=== PATIENT | female | born 1960 | race Caucasian/White ===

== ENCOUNTER 2016-09-01 12:29 | Observation (INO) | payer MEDICARE ==
[2016-09-01] MEDS ORDERED: SODIUM CHLORIDE 0.9% 1,000 ML IV STA (13:25)
[2016-09-01] MEDS ORDERED: ONDANSETRON 4 MG/2 ML VIAL IVP STA (13:25)
[2016-09-01] MEDS ORDERED: NITROGLYCERIN OINT 1 INCH/GM PACKET TOPICAL STA (13:25)
[2016-09-01] MEDS ORDERED: fentaNYL (PF) 50 MCG/ML 2 ML AMP IV PRN ×2 (13:27→15:44)
--- NOTE | 2016-09-01 14:00 | XR ---
EXAMINATION TYPE: XR chest 2V DATE OF EXAM: 09/01/2016 1:55 PM COMPARISON: Prior chest x-ray 25 May 2016 HISTORY: Chest pain TECHNIQUE: Frontal and lateral views of the chest are obtained. FINDINGS: There is no focal air space opacity, pleural effusion, or pneumothorax seen. The cardiac silhouette size is within normal limits. Patient is post left shoulder arthroplasty, median sternot victoria, multiple level vertebroplasty and mitral valve replacement. There are overlying cardiac leads. IMPRESSION: No acute cardiopulmonary process.
[2016-09-01 14:01] LABS: Calcium 9.4 mg/dL (8.4-10.2); Magnesium 1.7 mg/dL (1.6-2.3); Potassium 4.7 mmol/L (3.5-5.1); Total Bilirubin 0.4 mg/dL (0.2-1.3); Total Protein 6.3 g/dL (6.3-8.2)
[2016-09-01] MEDS ORDERED: ACETAMINOPHEN IV (For NPO) 1,000 MG in EMPTY BAG 1 BAG IVPB STA (14:02)
[2016-09-01 14:05] LABS: INR 1.1 (<1.1); Partial Thromboplastin Time 24.9 sec (22.0-30.0); Prothrombin Time 10.6 sec (9.0-12.0)
[2016-09-01 14:08] LABS: Basophils % (A) 0 %; CH 30.3; CHCM 32.2; Eosinophils # (A) 0.1 k/uL (0-0.7); Eosinophils % (A) 3 %; HCT 41.2 % (34.0-46.0); HDW 2.84; HGB 13.1 gm/dL (11.4-16.0); Hypochromasia Slight; Luc # (Auto) 0.16; Luc % (Auto) 3; Lymphocytes # (A) 2.1 k/uL (1.0-4.8); Lymphocytes % (A) 44 %; MCH 29.9 pg (25.0-35.0); MCHC 31.7 g/dL (31.0-37.0); MCV 94.4 fL (80.0-100.0); Mean Platelet Volume 7.6; Monocytes # (A) 0.4 k/uL (0-1.0); Monocytes % (A) 9 %; Neutrophils % (A) 41 %; RBC 4.36 m/uL (3.80-5.40); RDW 12.5 % (11.5-15.5); WBC 4.8 k/uL (3.8-10.6); WBC (Perox) 5.06
[2016-09-01 14:17] LABS: Creatine Kinase 74 U/L (30-135)
[2016-09-01 14:31] LABS: Creatine Kinase MB 0.7 ng/mL (0.0-2.4); Troponin I <0.012 ng/mL (0.000-0.034)
--- NOTE | 2016-09-01 14:38 | CT ---
EXAMINATION TYPE: CT brain wo con DATE OF EXAM: 09/01/2016 2:26 PM COMPARISON: 08/30/2015 HISTORY: 56-year-old female with left hand numbness, chest pain, headache and dizziness. TECHNIQUE: Examination was done in axial plane without intravenous contrast. Coronal and sagittal reconstructio ns performed. CT DLP: 1043 mGycm Automated exposure control for dose reduction was used. FINDINGS: There is no evidence of acute intracranial hemorrhage, acute ischemic changes, mass, mass-effect, or extra-axial fluid collection. There is no effacement of cerebral sulci or basal subarachnoid cister ns. There is no hydrocephalus. There is no midline shift. Martinez-white matter distinction is preserv ed. Old area of encephalomalacia within the right frontal lobe with secondary ex vacuo enlargement of the frontal horn of the right lateral ventricle. Paranasal sinuses and mastoid air cells are well pneumatized. Orbits and globes are intact. 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 No acute intracranial abn ormality seen.
[2016-09-01] MEDS ORDERED: RX INFO: IV CONTRAST WAS GIVEN 1 EACH MISC MISCELLANE PRN (15:17)
[2016-09-01] MEDS ORDERED: MEPERIDINE 50 MG/ML SYRINGE IVP STA (16:05)
--- NOTE | 2016-09-01 16:05 | ED ---
Chest Pain HPI - General Chief Complaint: Chest Pain Stated Complaint: Chest Pain Time Seen by Provider: 09/01/16 12:51 Source: patient Mode of arrival: wheelchair Limitations: no limitations - History of Present Illness Initial Comments: Planing about the chest pain and the back pain it's between her shoulder blades she had this episode about 11 AM and she was driving she pulled over this pain lasted for about 10-15 minutes she denies any shortness of breath rate down with the chest pain gets worse when she takes a deep breath she denies any chest pain at this point unless she takes a deep breath she does have a history of DVT she had a history of blood clot in her in her leg once and once and along this is palpation. Now not been feeling feeling well for the whole week denies any weakness of one leg or arm she does have a history of MS she is complaining about the parotid patient she said it's not her usual MS Contin of blurred vision he seems more pronounced - Related Data Home Medications Medication Instructions Recorded Confirmed Baclofen [Lioresal] 10 mg PO TID 04/22/14 09/01/16 Cholecalciferol [Vitamin D3] 2,000 unit PO DAILY 04/22/14 09/01/16 Cyclobenzaprine [Flexeril] 10 mg PO BID PRN 04/22/14 09/01/16 Denosumab [Prolia] 60 mg SQ Q180D 04/22/14 09/01/16 cycloSPORINE [Restasis] 1 drop BOTH EYES BID 04/22/14 09/01/16 ALPRAZolam [Xanax] 0.5 mg PO BID 08/30/15 09/01/16 Temazepam [Restoril] 30 mg PO HS PRN 08/30/15 09/01/16 Ascorbic Acid [Vitamin C] 500 mg PO DAILY 10/19/15 09/01/16 Cetirizine HCl [Zyrtec] 10 mg PO DAILY 10/19/15 09/01/16 L.acidoph,Paracasei, B.lactis 1 cap PO DAILY 10/19/15 09/01/16 [Probiotic] Magnesium Oxide [Mag-Ox] 250 mg PO DAILY 10/19/15 09/01/16 Montelukast [Singulair] 10 mg PO DAILY 10/19/15 09/01/16 Multivitamins, Thera [Multivitamin] 1 tab PO DAILY 10/19/15 09/01/16 [place]-3 Fatty Acids [[place]-3] 1,000 mg PO DAILY 10/19/15 09/01/16 Zinc 50 mg PO DAILY 10/19/15 09/01/16 Aspirin EC [Ecotrin Low Dose] 81 mg PO DAILY 05/25/16 09/01/16 Albuterol Nebulized [Ventolin 2.5 mg INHALATION RT-BID 09/01/16 09/01/16 Nebulized] Gabapentin [Neurontin] 400 mg PO TID 09/01/16 09/01/16 HYDROcodone/APAP 7.5-325MG [[place] 1 tab PO HS 09/01/16 09/01/16 7.5-325] Ibuprofen [Motrin] 800 mg PO BID PRN 09/01/16 09/01/16 Umeclidinium [place] [Incruse 1 puff INHALATION RT-DAILY 09/01/16 09/01/16 Ellipta] Allergies Allergy/AdvReac Type Severity Reaction Status Date / Time vancomycin Allergy Severe Anaphylaxis Verified 09/01/16 13:58 Latex, Natural Rubber Allergy Mild Rash/Hives Verified 09/01/16 13:58 doxycycline Allergy Anaphylaxis Verified 09/01/16 13:58 heparin Allergy Anaphylaxis Verified 09/01/16 13:58 hydromorphone HCl Allergy Anaphylaxis Verified 09/01/16 13:58 [From Dilaudid] linezolid [From Zyvox] Allergy Rash/Hives, Verified 09/01/16 13:58 itching morphine Allergy Anaphylaxis Verified 09/01/16 13:58 warfarin sodium Allergy Rash/Hives Verified 09/01/16 13:58 [From Coumadin] fentanyl AdvReac Nausea & Verified 09/01/16 15:56 Vomiting Review of Systems ROS Statement: Those systems with pertinent positive or pertinent negative responses have been documented in the HPI. ROS Other: All systems not noted in ROS Statement are negative. EKG Findings - EKG Comments: EKG Findings:: EKG is normal sinus rhythm ventricular rate is 87 CA interval is 146 QRS duration 74 QT/QTC 376/452 review of this EKG shows some flattening of the T-wave in lead 1 and then a T-wave inversion in V1 and V2 and V3 didn't notice any ST elevation and rest of the kitchen Past Medical History Past Medical History: COPD, CVA/TIA, Deep Vein Thrombosis (DVT), Eye Disorder, GERD/Reflux, Hypertension, Neurologic Disorder, Osteoarthritis (OA) Additional Past Medical History / Comment(s): Multiple Sclerosis diagnosed 2002 which affects her L side, 2007 CVA which affected her L side but is back to her baseline weakness due to MS, no peripheral vision L Eye, NOT ON HTN RX at this time, pt states she has some type of blood disorder (factor something), PUD, neurogenic bladder-self caths not very often; UTI's, thoracic fractures, gout, osteoporosis, DVT in L leg/L subclavian and heart, chronic back pain, ALLERGIES , SINUS PROB. History of Any Multi-Drug Resistant Organisms: MRSA Date of last positivie culture/infection: 05/2013 MDRO Source:: abd. incision Past Surgical History: Appendectomy, Back Surgery, Bowel Resection, Cholecystectomy, Hernia Repair, Hysterectomy, Joint Replacement, Orthopedic Surgery Additional Past Surgical History / Comment(s): Mitral Valve REPAIR Surg. Colectomy, Colostomy with LATER Reversal, several mediport-last removal 04/20/16 , MIRANDA Hips Replaced, LT Shoulder Replaced. EXC BILAT Cataracts. INCISIONAL HERNIA REPAIR-04/24/14, occipital and trapezius nerve blocks. Past Anesthesia/Blood Transfusion Reactions: Motion Sickness Additional Past Anesthesia/Blood Transfusion Reaction / Comment(s): Had seizure years ago post anesthesia that was felt to be do to latex allergy Past Psychological History: Anxiety, Depression Additional Psychological History / Comment(s): Pt states her anxiety and depression are well controlled. She resides with her spouse. She is independent. She drives. Smoking Status: Never smoker Past Alcohol Use History: None Reported Past Drug Use History: None Reported - Past Family History Father Family Medical History: Liver Disease Additional Family Medical History / Comment(s): Father of cirrhosis of the liver. He was an alcoholic. Sister(s) Family Medical History: Deep Vein Thrombosis (DVT) Mother Family Medical History: Cancer Additional Family Medical History / Comment(s): Mother of breast cancer at te age of 55 yrs. General Exam - General Exam Comments Initial Comments: General: The patient is awake and alert, in no distress, and does not appear acutely ill. Skin: Skin is warm and dry and no rashes or lesions are noted. Eye: Pupils are equal, round and reactive to light, extra-ocular movements are intact; there is normal conjunctiva bilaterally. Ears, nose, mouth and throat: There are moist mucous membranes and no oral lesions. Neck: The neck is supple, there is no tenderness or JVD. Cardiovascular: There is a regular rate and rhythm. No murmur, rub or gallop is appreciated. Respiratory: To auscultation bilateral, no wheezing no rhonchi no distress respiratory alvarez noticed Gastrointestinal: Soft, non-distended, non-tender abdomen without masses or organomegaly noted. There is no rebound or guarding present. Bowel sounds are unremarkable. Back: There is no tenderness to palpation in the midline. There is no obvious deformity. Musculoskeletal: Normal ROM, no tenderness, There is no pedal edema. There is no calf tenderness or swelling. No cords were appreciated. Neurological: CN II-XII intact, Cranial nerves III through XII are intact. There are no obvious motor or sensory deficits. Coordination appears grossly intact. Speech is normal. Psychiatric: Cooperative, appropriate mood & affect, normal judgment. Limitations: no limitations Course Vital Signs 09/01/16 09/01/16 09/01/16 12:32 14:38 15:51 Temperature 97.7 F Pulse Rate 93 92 86 Respiratory 16 14 15 Rate Blood Pressure 120/69 106/69 106/69 O2 Sat by Pulse 99 100 96 Oximetry Critical Care Time Total Critical Care Time: 35 Critical Care Time: She does have a chest pain now as well as pleuritic chest pain and d-dimer is elevated and she has a loss of ALLERGIES she is ALLERGIC to morphine she is ALLERGIC to Dilaudid she is also ALLERGIC to fentanyl the only pain medication she can take S and M and we did give her Demerol finally also her d-dimer is elevated unfortunately can't do the CT anterior chest to rule out PE because of her elevated creatinine. Considering that this spoke with Dr. Avila Montalvo presented with her under Dr. Israel Montalvo and will have a mining support worker has a consult and noncontributory refrain from heparinizing her on the side rule out aortic dissection Dr. Chapa he agreed to the Disposition Clinical Impression: Chest pain, Pleuritic chest pain Disposition: ADMITTED IP TO THIS HOSP Condition: Good
[2016-09-01] MEDS ORDERED: NITROGLYCERIN SL TABS 0.4 MG TAB SUBLINGUAL PRN (16:11)
[2016-09-01] MEDS ORDERED: DENOSUMAB 60 MG/ML 1 ML SYRINGE SQ SCH (16:30)
--- NOTE | 2016-09-01 17:36 | NM ---
EXAMINATION TYPE: NM pul vent and perfuse DATE OF EXAM: 09/01/2016 5:31 PM COMPARISON: NONE HISTORY: TECHNIQUE: Utilizing inhalation of 69.0 mCi Tc 99m DTPA aerosol and intravenous injection of 5.5 mCi of Tc 99m MAA, ventilation and perfusion images are acquired post injection in multiple projections. FINDINGS: There is a matching ventilation and perfusion defect at the lateral left lung base in the lateral bas al segment. This corresponds to an area of pleural fluid and infiltrate on the chest x-ray today. The re is no ventilation/perfusion mismatch. There is fairly uniform perfusion of the remainder of the juan ng espinoza. IMPRESSION: There is a single matching defect at the lateral left lung base corresponding to radiographic abnorma lity on the chest x-ray today. There is a low probability of pulmonary embolism.
[2016-09-01 19:38] LABS: Amylase <30 U/L (30-110)
--- NOTE | 2016-09-01 19:40 | XR ---
EXAMINATION TYPE: XR abdomen 2V DATE OF EXAM: 09/01/2016 7:29 PM COMPARISON: 2 views HISTORY: Chest pain TECHNIQUE: Single view FINDINGS: The bowel gas pattern is normal. There is no sign of intestinal obstruction or pneumoperito neum. Fecal pattern is normal. There is no evidence of a mass. There is multilevel spinal vertebropla sty noted. There is an infiltrate at the lateral left lung base. There is osteopenia. IMPRESSION: Nonacute abdomen. Infiltrate at the lateral left lung base.
[2016-09-01 19:50] LABS: Creatine Kinase 63 U/L (30-135)
[2016-09-01 20:03] LABS: Creatine Kinase MB 0.7 ng/mL (0.0-2.4); Troponin I <0.012 ng/mL (0.000-0.034)
[2016-09-01] MEDS ORDERED: HYDROcodone/APAP 7.5-325MG 1 EACH TAB PO SCH (21:00)
[2016-09-01] MEDS: ALBUTEROL NEBULIZED 2.5 MG/3 ML INHALATION SCH (21:30)
[2016-09-01] MEDS: BACLOFEN 10 MG TAB PO SCH (22:00)
--- NOTE | 2016-09-01 22:00 | P.CNNES ---
History of Present Illness Consult date: 09/01/16 Reason for Consult: Patient admitted with pleuritic chest pain. History of Present Illness: This patient is a 56-year-old right-handed white female who was admitted to the hospital with acute pleuritic chest pain. Patient states that she was driving her car home after going to receive an ALLERGY shot at her physician's office. Apparently she was on her way home and had severe excruciating chest pain. She is mostly involving the left side of her chest wall. She decided to come to the emergency room as she was afraid she may have suffered an acute heart attack. Patient was seen in the emergency room by Dr. Mcfarland. She was sent for a computed tomography scan of the brain which revealed an old right frontal lobe infarct with encephalomalacia. There was no evidence of acute stroke or hemorrhage. She was being evaluated for acute pleuritic chest pain and was also sent for a nuclear medicine perfusion study. Apparently there was some single defect noted in the left lung base. She is to be evaluated further by pulmonary medicine. Patient does have a history of underlying multiple sclerosis. She has not been on any specific treatment for MS for the last several years. She did notice over the last 2 weeks of increasing symptoms of word vision and occasional double vision. She has not experienced any weakness but does complain of some paresthesias mostly on her left side. This has been her typical findings for mild MS symptomatology. We have suggested to possibly begin on steroids but she is hesitant to start IV steroids at this time. The patient is also complaining of severe diarrhea for the past 3 weeks. This also may be contributing to some of her symptoms of lightheadedness. We have reviewed the results of her testing thus far and we will await further recommendations from the supervisor audit clerks. Patient is now admitted and neurology has been consulted for further evaluation and recommendations. Review of Systems Constitutional: Denies chills, Denies fever Eyes: denies blurred vision, denies pain Ears, nose, mouth and throat: Denies headache, Denies sore throat Cardiovascular: Denies chest pain, Denies shortness of breath Respiratory: Denies cough Gastrointestinal: Denies abdominal pain, Denies diarrhea, Denies nausea, Denies vomiting Genitourinary: Denies dysuria, Denies hematuria Musculoskeletal: Denies myalgias Integumentary: Denies pruritus, Denies rash Neurological: Reports double vision, Reports paresthesias, Denies numbness, Denies weakness Psychiatric: Denies anxiety, Denies depression Endocrine: Denies fatigue, Denies weight change Past Medical History Past Medical History: COPD, CVA/TIA, Deep Vein Thrombosis (DVT), Eye Disorder, GERD/Reflux, Hypertension, Neurologic Disorder, Osteoarthritis (OA) Additional Past Medical History / Comment(s): Multiple Sclerosis diagnosed 2002 which affects her L side, 2007 CVA which affected her L side but is back to her baseline weakness due to MS, no peripheral vision L Eye, NOT ON HTN RX at this time, pt states she has some type of blood disorder (factor something), PUD, neurogenic bladder-self caths not very often; UTI's, thoracic fractures, gout, osteoporosis, DVT in L leg/L subclavian and heart, chronic back pain, ALLERGIES , SINUS PROB. History of Any Multi-Drug Resistant Organisms: MRSA Date of last positivie culture/infection: 05/2013 MDRO Source:: abd. incision Past Surgical History: Appendectomy, Back Surgery, Bowel Resection, Cholecystectomy, Hernia Repair, Hysterectomy, Joint Replacement, Orthopedic Surgery Additional Past Surgical History / Comment(s): Mitral Valve REPAIR Surg. Colectomy, Colostomy with LATER Reversal, several mediport-last removal 04/20/16 , MIRANDA Hips Replaced, LT Shoulder Replaced. EXC BILAT Cataracts. INCISIONAL HERNIA REPAIR-04/24/14, occipital and trapezius nerve blocks. Past Anesthesia/Blood Transfusion Reactions: Motion Sickness Additional Past Anesthesia/Blood Transfusion Reaction / Comment(s): Had seizure years ago post anesthesia that was felt to be do to latex allergy Past Psychological History: Anxiety, Depression Additional Psychological History / Comment(s): Pt states her anxiety and depression are well controlled. She resides with her spouse. She is independent. She drives. Smoking Status: Never smoker Past Alcohol Use History: None Reported Past Drug Use History: None Reported - Past Family History Father Family Medical History: Liver Disease Additional Family Medical History / Comment(s): Father of cirrhosis of the liver. He was an alcoholic. Sister(s) Family Medical History: Deep Vein Thrombosis (DVT) Mother Family Medical History: Cancer Additional Family Medical History / Comment(s): Mother of breast cancer at te age of 55 yrs. Medications and Allergies Home Medications Medication Instructions Recorded Confirmed Type Baclofen [Lioresal] 10 mg PO TID 04/22/14 09/01/16 History Cholecalciferol [Vitamin D3] 2,000 unit PO DAILY 04/22/14 09/01/16 History Cyclobenzaprine [Flexeril] 10 mg PO BID PRN 04/22/14 09/01/16 History Denosumab [Prolia] 60 mg SQ Q180D 04/22/14 09/01/16 History cycloSPORINE [Restasis] 1 drop BOTH EYES BID 04/22/14 09/01/16 History ALPRAZolam [Xanax] 0.5 mg PO BID 08/30/15 09/01/16 History Temazepam [Restoril] 30 mg PO HS PRN 08/30/15 09/01/16 History Ascorbic Acid [Vitamin C] 500 mg PO DAILY 10/19/15 09/01/16 History Cetirizine HCl [Zyrtec] 10 mg PO DAILY 10/19/15 09/01/16 History L.acidoph,Paracasei, B.lactis 1 cap PO DAILY 10/19/15 09/01/16 History [Probiotic] Magnesium Oxide [Mag-Ox] 250 mg PO DAILY 10/19/15 09/01/16 History Montelukast [Singulair] 10 mg PO DAILY 10/19/15 09/01/16 History Multivitamins, Thera [Multivitamin] 1 tab PO DAILY 10/19/15 09/01/16 History [place]-3 Fatty Acids [[place]-3] 1,000 mg PO DAILY 10/19/15 09/01/16 History Zinc 50 mg PO DAILY 10/19/15 09/01/16 History Aspirin EC [Ecotrin Low Dose] 81 mg PO DAILY 05/25/16 09/01/16 History Albuterol Nebulized [Ventolin 2.5 mg INHALATION RT-BID 09/01/16 09/01/16 History Nebulized] Gabapentin [Neurontin] 400 mg PO TID 09/01/16 09/01/16 History HYDROcodone/APAP 7.5-325MG [[place] 1 tab PO HS 09/01/16 09/01/16 History 7.5-325] Ibuprofen [Motrin] 800 mg PO BID PRN 09/01/16 09/01/16 History Umeclidinium [place] [Incruse 1 puff INHALATION RT-DAILY 09/01/16 09/01/16 History Ellipta] Allergies Allergy/AdvReac Type Severity Reaction Status Date / Time vancomycin Allergy Severe Anaphylaxis Verified 09/01/16 13:58 doxycycline Allergy Anaphylaxis Verified 09/01/16 13:58 heparin Allergy Anaphylaxis Verified 09/01/16 13:58 hydromorphone HCl Allergy Anaphylaxis Verified 09/01/16 13:58 [From Dilaudid] Latex, Natural Rubber Allergy Rash/Hives Verified 09/01/16 20:26 linezolid [From Zyvox] Allergy Rash/Hives, Verified 09/01/16 13:58 itching morphine Allergy Anaphylaxis Verified 09/01/16 13:58 warfarin sodium Allergy Rash/Hives Verified 09/01/16 13:58 [From Coumadin] fentanyl AdvReac Nausea & Verified 09/01/16 15:56 Vomiting Physical Examination - Vital Signs Vital Signs: Vital Signs Temp Pulse Pulse Resp BP BP Pulse Ox 09/01/16 18:44 97.4 F L 103 H 18 124/75 95 09/01/16 18:40 103 H 18 09/01/16 18:09 91 14 120/66 98 09/01/16 17:24 101 H 15 150/84 98 Intake and Output 09/01/16 09/01/16 09/01/16 06:59 14:59 22:59 Other: Weight 62.5 kg Patient Weight 09/02/16 06:59 Weight 62.5 kg - Constitutional General appearance: average body habitus, cooperative - EENT EENT: PERRL, mucous membranes moist - Respiratory Respiratory: lungs clear, normal breath sounds - Cardiovascular Cardiovascular: regular rate, normal S1, normal S2 Extremities: no peripheral edema bilaterally - Gastrointestinal Gastrointestinal: normoactive bowel sounds - Integumentary Integumentary: normal - Neurologic Cranial nerve examination: PERRL, EOMI, VFF, V1/V2/V3 grossly intact, face symmetric, tongue midline, intact gag reflex, intact corneal reflex, normal palatal elevation Speech examination: intact Sensorimotor examination: intact Motor examination - right side: 5/5: biceps, triceps, wrist flexion, wrist extension, wallcovering texturer, hip flexors, knee extensors, dorsiflexion, toe extension (EHL) , plantarflexion Motor examination - left side: 4/5: biceps, triceps, wrist flexion, wrist extension, wallcovering texturer, hip flexors, knee extensors, dorsiflexion, toe extension (EHL) , plantarflexion Detailed sensory examination: intact Reflexes: 1+: ankle, bicep, knee, tricep - Musculoskeletal Musculoskeletal: no pain - Psychiatric Psychiatric: mood/affect appropriate, cooperative Results - Laboratory Findings CBC and BMP: 09/01/16 13:06 09/01/16 13:06 Abnormal Lab Findings: Abnormal Labs 09/01/16 18:58 Amylase <30 L Assessment and Plan (1) Pleuritic chest pain Status: Acute Code(s): R07.81 - PLEURODYNIA (2) Blurred vision, right eye Status: Acute Code(s): H53.8 - OTHER VISUAL DISTURBANCES (3) Exacerbation of multiple sclerosis Status: Acute Code(s): G35 - MULTIPLE SCLEROSIS (4) History of CVA (cerebrovascular accident) Status: Chronic Code(s): Z86.73 - PRSNL HX OF TIA (TIA), AND CEREB INFRC W/O RESID DEFICITS Plan: This patient is a 56-year-old female who has a long-standing history of multiple sclerosis. She had an episode of acute pleuritic chest pain involving the left chest wall. 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 She was brought into the emergency room as she was concerned about having suffered an acute myocardial infarction. She was seen in the ER and sent for computed tomography scan of the brain. CAT scan failed to reveal any evidence of acute stroke. She does have evidence of an old right frontal lobe infarct. The patient also complained of symptoms of vision changes and double vision recently. Given her history of MS she was suggested to begin a short course of IVs Solu-Medrol for treatment of possible MS exacerbation. Patient has declined at this time and we will need to follow her course closely over the next 24 hours. Patient did undergo a V/Q perfusion study of the lungs. There was a single matching defect in the left lung base. We are waiting further recommendations from pulmonary medicine. At this time we will continue close monitoring of the patient. She is once again recommended to consider a short course of IV steroid therapy for possible mild MS exacerbation. Further workup of her chest pain is ongoing. Her overall prognosis at this time remains guarded. Time with Patient: Greater than 30
[2016-09-01] MEDS: GABAPENTIN 400 MG CAP PO SCH (22:13)
[2016-09-01] MEDS: ALPRAZolam 0.5 MG TAB PO SCH (22:14)
[2016-09-01] MEDS: cycloSPORINE 0.05% OPHTH 0.4 ML DROPERETTE BOTH EYES SCH (22:14)
[2016-09-01] MEDS: TEMAZEPAM 30 MG CAP PO PRN (22:18)
[2016-09-02 02:33] LABS: Creatine Kinase 55 U/L (30-135)
[2016-09-02 02:47] LABS: Creatine Kinase MB 0.5 ng/mL (0.0-2.4); Troponin I <0.012 ng/mL (0.000-0.034)
[2016-09-02 02:51] LABS: Cholesterol 151 mg/dL (<200); HDL Cholesterol 46 mg/dL (40-60); Triglycerides 103 mg/dL (<150)
[2016-09-02] MEDS: IBUPROFEN 800 MG TAB PO PRN (07:12)
[2016-09-02] MEDS: CYCLOBENZAPRINE 10 MG TAB PO PRN ×2 (07:13→21:33)
[2016-09-02] MEDS: ALBUTEROL NEBULIZED 2.5 MG/3 ML INHALATION SCH ×2 (07:43→20:20)
[2016-09-02] MEDS: TIOTROPIUM 18 MCG/PUFF INHALER INHALATION SCH (07:44)
[2016-09-02] MEDS ORDERED: ASPIRIN 325 MG TAB PO SCH (09:00)
[2016-09-02] MEDS ORDERED: NON-FORMULARY DRUG (Omega-3 Fatty Acids [Omega-3] 1,000 MG) PO SCH (09:00)
[2016-09-02 09:09] LABS: ALT 36 U/L (9-52); AST 23 U/L (14-36); Alkaline Phosphatase 84 U/L (38-126); Anion Gap 13 mmol/L; Blood Urea Nitrogen 11 mg/dL (7-17); Calcium 9.4 mg/dL (8.4-10.2); Carbon Dioxide 23 mmol/L (22-30); Chloride 112 mmol/L (98-107); Glucose 94 mg/dL (74-99); Non-African American GFR(MDRD) 58 (>60 ml/min/1.73 sqM); Potassium 4.5 mmol/L (3.5-5.1); Sodium 148 mmol/L (137-145); Total Bilirubin 0.4 mg/dL (0.2-1.3); Total Protein 5.7 g/dL (6.3-8.2)
[2016-09-02] MEDS: ASPIRIN 81 MG CHEW PO SCH (09:55)
[2016-09-02] MEDS: MONTELUKAST 10 MG TAB PO SCH (09:55)
[2016-09-02] MEDS: LORATADINE 10 MG TAB PO SCH (09:55)
[2016-09-02] MEDS: ALPRAZolam 0.5 MG TAB PO SCH ×2 (09:55→20:48)
[2016-09-02] MEDS: cycloSPORINE 0.05% OPHTH 0.4 ML DROPERETTE BOTH EYES SCH ×2 (09:55→20:47)
[2016-09-02] MEDS: GABAPENTIN 400 MG CAP PO SCH ×3 (09:55→20:47)
[2016-09-02] MEDS: BACLOFEN 10 MG TAB PO SCH ×3 (09:55→20:48)
--- NOTE | 2016-09-02 10:07 | P.CRDCN ---
History of Present Illness Consult date: 09/02/16 History of present illness: This is a 56-year-old female with history of a mitral valve repair done at [facility] about 10 years ago. She used to see Dr. Georges in the past but hasn't seen him for several years. She is also diagnosed to have multiple sclerosis and COPD. She comes that she had been having back and chest pain and arm pains off-and-on for several weeks. Yesterday she was driving home and suddenly had severe squeezing pain and could not take her breath. She has to nail puller and take arrest and eventually the pain improved and she was able to drive home. Because of continued pain patient was brought to the emergency room. The pain is clearly pleuritic and increases on deep breathing. It is felt both anteriorly and posteriorly. She doesn't seem to be in acute distress. Her cardiac enzymes are negative. EKGs did not reveal any acute changes. Her VQ scan is low probability for pulmonary emboli. I'm going to get a surface echocardiogram to assess LV function and also rule out any pericardial effusion. No further cardiac workup is suggested at this time. A pulmonary consult is pending. Review of Systems As per the chart Past Medical History Past Medical History: COPD, CVA/TIA, Deep Vein Thrombosis (DVT), Eye Disorder, GERD/Reflux, Hypertension, Neurologic Disorder, Osteoarthritis (OA) Additional Past Medical History / Comment(s): Multiple Sclerosis diagnosed 2002 which affects her L side, 2007 CVA which affected her L side but is back to her baseline weakness due to MS, no peripheral vision L Eye, NOT ON HTN RX at this time, pt states she has some type of blood disorder (factor something), PUD, neurogenic bladder-self caths not very often; UTI's, thoracic fractures, gout, osteoporosis, DVT in L leg/L subclavian and heart, chronic back pain, ALLERGIES , SINUS PROB. History of Any Multi-Drug Resistant Organisms: MRSA Date of last positivie culture/infection: 05/2013 MDRO Source:: abd. incision Past Surgical History: Appendectomy, Back Surgery, Bowel Resection, Cholecystectomy, Hernia Repair, Hysterectomy, Joint Replacement, Orthopedic Surgery Additional Past Surgical History / Comment(s): Mitral Valve REPAIR Surg. Colectomy, Colostomy with LATER Reversal, several mediport-last removal 8/24/16 , MIRANDA Hips Replaced, LT Shoulder Replaced. EXC BILAT Cataracts. INCISIONAL HERNIA REPAIR-04/24/14, occipital and trapezius nerve blocks. Past Anesthesia/Blood Transfusion Reactions: Motion Sickness Additional Past Anesthesia/Blood Transfusion Reaction / Comment(s): Had seizure years ago post anesthesia that was felt to be do to latex allergy Past Psychological History: Anxiety, Depression Additional Psychological History / Comment(s): Pt states her anxiety and depression are well controlled. She resides with her spouse. She is independent. She drives. Smoking Status: Never smoker Past Alcohol Use History: None Reported Past Drug Use History: None Reported - Past Family History Father Family Medical History: Liver Disease Additional Family Medical History / Comment(s): Father of cirrhosis of the liver. He was an alcoholic. Sister(s) Family Medical History: Deep Vein Thrombosis (DVT) Mother Family Medical History: Cancer Additional Family Medical History / Comment(s): Mother of breast cancer at te age of 55 yrs. Medications and Allergies Home Medications Medication Instructions Recorded Confirmed Type Baclofen [Lioresal] 10 mg PO TID 04/22/14 09/01/16 History Cholecalciferol [Vitamin D3] 2,000 unit PO DAILY 04/22/14 09/01/16 History Cyclobenzaprine [Flexeril] 10 mg PO BID PRN 04/22/14 09/01/16 History Denosumab [Prolia] 60 mg SQ Q180D 04/22/14 09/01/16 History cycloSPORINE [Restasis] 1 drop BOTH EYES BID 04/22/14 09/01/16 History ALPRAZolam [Xanax] 0.5 mg PO BID 08/30/15 09/01/16 History Temazepam [Restoril] 30 mg PO HS PRN 08/30/15 09/01/16 History Ascorbic Acid [Vitamin C] 500 mg PO DAILY 10/19/15 09/01/16 History Cetirizine HCl [Zyrtec] 10 mg PO DAILY 10/19/15 09/01/16 History L.acidoph,Paracasei, B.lactis 1 cap PO DAILY 10/19/15 09/01/16 History [Probiotic] Magnesium Oxide [Mag-Ox] 250 mg PO DAILY 10/19/15 09/01/16 History Montelukast [Singulair] 10 mg PO DAILY 10/19/15 09/01/16 History Multivitamins, Thera [Multivitamin] 1 tab PO DAILY 10/19/15 09/01/16 History [place]-3 Fatty Acids [[place]-3] 1,000 mg PO DAILY 10/19/15 09/01/16 History Zinc 50 mg PO DAILY 10/19/15 09/01/16 History Aspirin EC [Ecotrin Low Dose] 81 mg PO DAILY 05/25/16 09/01/16 History Albuterol Nebulized [Ventolin 2.5 mg INHALATION RT-BID 09/01/16 09/01/16 History Nebulized] Gabapentin [Neurontin] 400 mg PO TID 09/01/16 09/01/16 History HYDROcodone/APAP 7.5-325MG [[place] 1 tab PO HS 09/01/16 09/01/16 History 7.5-325] Ibuprofen [Motrin] 800 mg PO BID PRN 09/01/16 09/01/16 History Umeclidinium [place] [Incruse 1 puff INHALATION RT-DAILY 09/01/16 09/01/16 History Ellipta] Allergies Allergy/AdvReac Type Severity Reaction Status Date / Time vancomycin Allergy Severe Anaphylaxis Verified 09/01/16 13:58 doxycycline Allergy Anaphylaxis Verified 09/01/16 13:58 heparin Allergy Anaphylaxis Verified 09/01/16 13:58 hydromorphone HCl Allergy Anaphylaxis Verified 09/01/16 13:58 [From Dilaudid] Latex, Natural Rubber Allergy Rash/Hives Verified 09/01/16 20:26 linezolid [From Zyvox] Allergy Rash/Hives, Verified 09/01/16 13:58 itching morphine Allergy Anaphylaxis Verified 09/01/16 13:58 warfarin sodium Allergy Rash/Hives Verified 09/01/16 13:58 [From Coumadin] fentanyl AdvReac Nausea & Verified 09/01/16 15:56 Vomiting Physical Exam Vitals: Vital Signs Temp Pulse Pulse Resp BP BP Pulse Ox 09/02/16 07:57 84 09/02/16 07:47 80 97 09/02/16 07:45 97.9 F 86 16 106/58 93 L 09/02/16 05:30 97.8 F 82 16 105/58 96 09/02/16 04:00 87 16 09/02/16 00:00 97.7 F 105 H 16 96/59 92 L 09/01/16 21:40 90 09/01/16 21:30 90 09/01/16 20:00 97.6 F 106 H 16 123/72 93 L 09/01/16 18:44 97.4 F L 103 H 18 124/75 95 09/01/16 18:40 103 H 18 09/01/16 18:09 91 14 120/66 98 09/01/16 17:24 101 H 15 150/84 98 Intake and Output 09/01/16 09/02/16 09/02/16 22:59 06:59 14:59 Other: # Voids 1 Weight 62.5 kg GENERAL EXAM: Patient is alert and oriented and doesn't appear to be in any acute distress HEENT: Normocephalic. Normal reaction of pupils, equal size, normal range of extraocular motion. No erythema or exudates in the throat. NECK: No masses, no nuchal rigidity. CHEST: No chest wall deformity. Patient has some tenderness in the midsternal area LUNGS: Equal air entry with no crackles or wheeze. HEART: S1 and S2 normal with no audible mumurs or gallops. Regular rhythm, femorals equal on both sides.. ABDOMEN: No hepatosplenomegaly, normal bowel sounds, no guarding or rigidity. SKIN: No rashes CENTRAL NERVOUS SYSTEM: No focal deficits. EXTREMITIES: No cyanosis, clubbing or edema. Results 09/01/16 13:06 09/02/16 01:24 Cardiac Enzymes 09/01/16 09/02/16 09/02/16 Range/Units 18:58 01:24 01:24 AST 23 (14-36) U/L CK-MB (CK-2) 0.7 0.5 (0.0-2.4) ng/mL Troponin I <0.012 <0.012 (0.000-0.034) ng/mL Lipids 09/02/16 Range/Units 01:24 Triglycerides 103 (<150) mg/dL Cholesterol 151 (<200) mg/dL HDL Cholesterol 46 (40-60) mg/dL Comprehensive Metabolic Panel 09/02/16 Range/Units 01:24 Sodium 148 H (137-145) mmol/L Potassium 4.5 (3.5-5.1) mmol/L Chloride 112 H (98-107) mmol/L Carbon Dioxide 23 (22-30) mmol/L BUN 11 (7-17) mg/dL Creatinine 0.99 (0.52-1.04) mg/dL Glucose 94 (74-99) mg/dL Calcium 9.4 (8.4-10.2) mg/dL AST 23 (14-36) U/L ALT 36 (9-52) U/L Alkaline Phosphatase 84 (38-126) U/L Total Protein 5.7 L (6.3-8.2) g/dL Albumin 3.1 L (3.5-5.0) g/dL Current Medications Generic Name Dose Route Start Last Admin Trade Name Freq PRN Reason Stop Dose Admin Acetaminophen/Hydrocodone Bitart 1 each 09/01/16 21:00 09/01/16 22:18 [place] 7.5-325 PO 1 each HS CRAIG Administration Albuterol Sulfate 2.5 mg 09/01/16 20:00 09/02/16 07:43 Ventolin Nebulized INHALATION 2.5 mg RT-BID CRAIG Administration Alprazolam 0.5 mg 09/01/16 21:00 09/02/16 09:55 Xanax PO 0.5 mg BID CRAIG Administration Ascorbic Acid 500 mg 09/02/16 12:00 Vitamin C PO 1200 [facility] Aspirin 81 mg 09/02/16 09:00 09/02/16 09:55 Aspirin PO 81 mg DAILY CRAIG Administration Baclofen 10 mg 09/01/16 22:00 09/02/16 09:55 Lioresal PO 10 mg TID CRAIG Administration Cholecalciferol 2,000 unit 09/02/16 12:00 Vitamin D3 PO 1200 [facility] Cyclobenzaprine HCl 10 mg 09/01/16 16:16 09/02/16 07:13 Flexeril PO 10 mg BID PRN Administration Muscle Pain Cyclosporine 1 drops 09/01/16 21:00 09/02/16 09:55 Restasis 0.05% Ophth Soln BOTH EYES 1 drops BID CRAIG Administration Fentanyl Citrate 25 mcg 09/01/16 15:44 Sublimaze IV Q5M PRN Pain management Gabapentin 400 mg 09/01/16 22:00 09/02/16 09:55 Neurontin PO 400 mg TID CRAIG Administration Ibuprofen 800 mg 09/01/16 16:16 09/02/16 07:12 Motrin PO 800 mg BID PRN Administration Pain Lactobacillus Acidoph/Bulgar[place] 1 each 09/02/16 12:00 Lactinex PO 1200 CRAIG Loratadine 10 mg 09/02/16 09:00 09/02/16 09:55 Claritin PO 10 mg DAILY CRAIG Administration Magnesium Oxide 250 mg 09/02/16 12:00 Mag-Ox PO 1200 CRAIG Miscellaneous Information 1 each 09/01/16 15:17 Rx Info: Iv Contrast Was Given MISCELLANE 09/03/16 15:18 DAILY PRN Per Protocol Montelukast Sodium 10 mg 09/02/16 09:00 09/02/16 09:55 Singulair PO 10 mg DAILY CRAIG Administration Multivitamins 1 each 09/02/16 12:00 Theragran PO 1200 CRAIG Nitroglycerin 0.4 mg 09/01/16 16:11 Nitrostat SUBLINGUAL Q5M PRN Chest Pain Temazepam 30 mg 09/01/16 16:16 09/01/16 22:18 Restoril PO 30 mg HS PRN Administration Insomnia Tiotropium [place] 1 puff 09/02/16 08:00 09/02/16 07:44 Spiriva INHALATION 1 puff RT-DAILY CRAIG Administration Zinc Gluconate 50 mg 09/02/16 12:00 Zinc PO 1200 CRAIG Intake and Output 09/01/16 09/02/16 09/02/16 22:59 06:59 14:59 Other: # Voids 1 Weight 62.5 kg 09/02/16 01:24 EKG Interpretations (text) Sinus rhythm Assessment and Plan (1) History of mitral valve repair Status: Acute (2) Chest pain Status: Acute (3) Pleuritic chest pain Status: Acute (4) COPD (chronic obstructive pulmonary disease) Status: Acute (5) HTN (hypertension) Status: Acute (6) Multiple sclerosis, primary chronic progressive Status: Chronic Plan: We will get an echocardiogram to assess LV function and also mitral valve function. If that is normal no further cardiac workup is suggested. Pulmonary evaluation is pending
[2016-09-02] MEDS: ZINC GLUCONATE 50 MG TAB PO SCH (11:45)
[2016-09-02] MEDS: CHOLECALCIFEROL 1,000 UNIT TAB PO SCH (11:46)
[2016-09-02] MEDS: LACTOBACILLUS ACIDOPH & BULGAR 1 EACH PACKET PO SCH (11:46)
[2016-09-02] MEDS: ASCORBIC ACID 500 MG TAB PO SCH (11:46)
[2016-09-02] MEDS: MULTIVITAMINS, THERA 1 EACH TAB PO SCH (11:46)
[2016-09-02] MEDS: MAGNESIUM OXIDE 250 MG TAB PO SCH (11:46)
[2016-09-02] MEDS ORDERED: RX INFO: IV CONTRAST WAS GIVEN 1 EACH MISC MISCELLANE PRN (12:10)
--- NOTE | 2016-09-02 12:22 | ECHOF ---
Referral Reason:Chest pain and cardiomyopathy MEASUREMENTS -------- HEIGHT: 170.2 cm WEIGHT: 62.1 kg BP: 106/58 RVIDd: 2.5 cm (< 3.3) IVSd: 0.9 cm (0.6 - 1.1) LVIDd: 2.9 cm (3.9 - 5.3) LVPWd: 1.0 cm (0.6 - 1.1) IVSs: 1.3 cm LVIDs: 2.1 cm LVPWs: 1.5 cm LAESV Index (A-L): 15.98 ml/m Ao Diam: 2.6 cm (2.0 - 3.7) AV Cusp: 1.6 cm (1.5 - 2.6) LA Diam: 2.2 cm (2.7 - 3.8) MV EXCURSION: 5.727 mm (> 18.000) MV EF SLOPE: 20 mm/s (70 - 150) EPSS: 0.3 cm MV E Aleksandr: 1.81 m/s MV DecT: 248 ms MV A Aleksandr: 1.67 m/s MV E/A Ratio: 1.08 FINDINGS -------- Sinus rhythm. This was a technically good study. Left ventricular wall thickness is normal. Overall left ventricular systolic function is normal with, an EF between 55 - 60 %. The right ventricle is normal in size. Normal LA size by volume 22+/-6 ml/m2. The right atrium is normal in size. Aortic valve is trileaflet and is mildly thickened. The mitral valve leaflets are mildly thickened. Moderate mitral annular calcification present. The peak and mean MV gradients are 14.16mmHg 8.04mmHg as measured by doppler. MV Repair. Trace tricuspid regurgitation present. Right ventricular systolic pressure is normal at < 35 mmHg. The pulmonic valve was not well visualized. The aortic root size is normal. There is no pericardial effusion. CONCLUSIONS -------- 1. Sinus rhythm. 2. Moderate mitral annular calcification present. 3. The peak and mean MV gradients are 14.16mmHg 8.04mmHg as measured by doppler. 4. MV Repair. 5. Trace tricuspid regurgitation present. 6. Right ventricular systolic pressure is normal at < 35 mmHg. 7. The pulmonic valve was not well visualized. 8. The aortic root size is normal. 9. There is no pericardial effusion. 10. This was a technically good study. 11. Left ventricular wall thickness is normal. 12. Overall left ventricular systolic function is normal with, an EF between 55 - 60 %. 13. The right ventricle is normal in size. 14. Normal LA size by volume 22+/-6 ml/m2. 15. The right atrium is normal in size. 16. Aortic valve is trileaflet and is mildly thickened. 17. The mitral valve leaflets are mildly thickened. [employer] INSTRUCTOR: Rosario Wilson RDCS
--- NOTE | 2016-09-02 12:28 | HP ---
DATE OF ADMISSION: CHIEF COMPLAINT: A white female came in with chest and back pain radiating to the shoulder blades around [address] home. After 10 or 15 minutes she got home, she was still short of breath, got home and had chest pain worse, going down the left arm. She then was brought to the hospital. She has a history of a DVT, and blood clot in her leg. She feels dizzy on and off. She does not feel right. She has a history of multiple sclerosis and worsening dizziness and chest pain, she was brought to the hospital for evaluation. She was admitted to rule out myocardial infarction . Home medicines include: 1. Lioresal 10 mg t.i.d. 2. Vitamin D 2000 daily. 3. Flexeril 10 b.i.d. 4. Prolia 60 mg subcu q.18 days. 5. Restasis one drop in both eyes b.i.d. 6. Xanax 0.5 b.i.d. 7. She takes Restoril. 8. Vitamin C. 9. Zyrtec. 10. Probiotics. 11. Mag-Oxide. 12. Singulair. 13. Multivitamins. 14. [place] 3. 15. Ecotrin. 16. Ventolin. 17. Neurontin. 18. Cas[place]. 19. Motrin. 20. Incruse inhaler. Allergies are to VANCOMYCIN, RUBBER, DOXYCYCLINE, HEPARIN, DILAUDID, ZYVOX, MORPHINE, WARFARIN, FENTANYL. REVIEW OF SYSTEMS: PSYCH: Negative. NEURO: Negative. IMMUNE: Negative. INTEGUMENT: Negative. VASCULAR: Negative. OPHTHALMOLOGIC: Negative. : Negative. GERENTOLOGICAL PHYSIOTHERAPIST: Negative. CARDIAC: Negative. PULMONARY: Negative. EKG as mentioned above. PAST MEDICAL HISTORY: COPD, CVA, TIA, DVT, ophthalmologic disorder, GERD, hypertension, neurologic disorder, osteoarthritis, multiple sclerosis, allergies. She has a history of MRSA., appendectomy, back surgery, bowel resection, cholecystectomy, hernia repair, joint replacement, orthopedic surgery, bilateral hip repair, mitral valve repair, colectomy, colonoscopy, incisional hernia repair, history of motion sickness with seizure disorder postanesthesia, anxiety, depression. Family history of liver disease in a father. Father of the cirrhosis of the liver. Sister of DVT. Mother of breast cancer age 55. PHYSICAL EXAMINATION: Temperature 97.7, pulse 86 to 93, respirations 14 to 16, blood pressure 106 to 120 over 60's, oxygen 96% to 100% on room air. GENERAL: She is awake, alert and oriented. Skin is warm and dry. Pupils equal, round and reactive to light. ( ) within normal limits. NECK: Supple. No mass. CARDIOVASCULAR: Regular rate and rhythm. No murmurs, rubs, or gallops. GI: Soft, nontender. BACK: Nontender to palpation, midline. MUSCULOSKELETAL: Normal range of motion. No tenderness. No pedal edema. NEUROLOGIC: Cranial nerves are intact. PSYCH: Fair mood and affect. ASSESSMENT: 1. Atypical chest pain, suspect pleuritic chest pain, elevated D-dimer of unclear etiology, possibly due to renal insufficiency. 2. Acute on chronic renal insufficiency. 3. Pleuritic-type chest pain. 4. Elevated D-dimer. 5. Multiple sclerosis. 6. Dizziness, unclear etiology. 7. Imbalance secondary to multiple sclerosis. Cardiology, Pulmonary and Neurology are consulted. Continue on holding her heparin due to ( ). Please see further orders on the chart.
--- NOTE | 2016-09-02 13:23 | P.CNPUL ---
History of Present Illness Consult date: 09/02/16 Reason for consult: cough, chest pain Chief complaint: Chest and back pain History of present illness: This is a 56-year-old female who presents emergency department complaining of chest and back pain. The patient states the pain was on the left side of her chest and went to her back. She states she has had chronic back pain over the last few months. However the chest pain is new. She denies fever at home. However she does state she has chills. She is also coughing up green phlegm. She states that she was diagnosed with COPD in July however she is a lifelong never smoker. She states she has been on high-dose steroids every 6 weeks for the last 10 years for her MS. Review of Systems All systems: negative Past Medical History Past Medical History: COPD, CVA/TIA, Deep Vein Thrombosis (DVT), Eye Disorder, GERD/Reflux, Hypertension, Neurologic Disorder, Osteoarthritis (OA) Additional Past Medical History / Comment(s): Multiple Sclerosis diagnosed 2002 which affects her L side, 2007 CVA which affected her L side but is back to her baseline weakness due to MS, no peripheral vision L Eye, NOT ON HTN RX at this time, pt states she has some type of blood disorder (factor something), PUD, neurogenic bladder-self caths not very often; UTI's, thoracic fractures, gout, osteoporosis, DVT in L leg/L subclavian and heart, chronic back pain, ALLERGIES , SINUS PROB. History of Any Multi-Drug Resistant Organisms: MRSA Date of last positivie culture/infection: 05/2013 MDRO Source:: abd. incision Past Surgical History: Appendectomy, Back Surgery, Bowel Resection, Cholecystectomy, Hernia Repair, Hysterectomy, Joint Replacement, Orthopedic Surgery Additional Past Surgical History / Comment(s): Mitral Valve REPAIR Surg. Colectomy, Colostomy with LATER Reversal, several mediport-last removal 04/20/16 , MIRANDA Hips Replaced, LT Shoulder Replaced. EXC BILAT Cataracts. INCISIONAL HERNIA REPAIR-04/24/14, occipital and trapezius nerve blocks. Past Anesthesia/Blood Transfusion Reactions: Motion Sickness Additional Past Anesthesia/Blood Transfusion Reaction / Comment(s): Had seizure years ago post anesthesia that was felt to be do to latex allergy Past Psychological History: Anxiety, Depression Additional Psychological History / Comment(s): Pt states her anxiety and depression are well controlled. She resides with her spouse. She is independent. She drives. Smoking Status: Never smoker Past Alcohol Use History: None Reported Past Drug Use History: None Reported - Past Family History Father Family Medical History: Liver Disease Additional Family Medical History / Comment(s): Father of cirrhosis of the liver. He was an alcoholic. Sister(s) Family Medical History: Deep Vein Thrombosis (DVT) Mother Family Medical History: Cancer Additional Family Medical History / Comment(s): Mother of breast cancer at te age of 55 yrs. Medications and Allergies Home Medications Medication Instructions Recorded Confirmed Type Baclofen [Lioresal] 10 mg PO TID 04/22/14 09/01/16 History Cholecalciferol [Vitamin D3] 2,000 unit PO DAILY 04/22/14 09/01/16 History Cyclobenzaprine [Flexeril] 10 mg PO BID PRN 04/22/14 09/01/16 History Denosumab [Prolia] 60 mg SQ Q180D 04/22/14 09/01/16 History cycloSPORINE [Restasis] 1 drop BOTH EYES BID 04/22/14 09/01/16 History ALPRAZolam [Xanax] 0.5 mg PO BID 08/30/15 09/01/16 History Temazepam [Restoril] 30 mg PO HS PRN 08/30/15 09/01/16 History Ascorbic Acid [Vitamin C] 500 mg PO DAILY 10/19/15 09/01/16 History Cetirizine HCl [Zyrtec] 10 mg PO DAILY 10/19/15 09/01/16 History L.acidoph,Paracasei, B.lactis 1 cap PO DAILY 10/19/15 09/01/16 History [Probiotic] Magnesium Oxide [Mag-Ox] 250 mg PO DAILY 10/19/15 09/01/16 History Montelukast [Singulair] 10 mg PO DAILY 10/19/15 09/01/16 History Multivitamins, Thera [Multivitamin] 1 tab PO DAILY 10/19/15 09/01/16 History [place]-3 Fatty Acids [[place]-3] 1,000 mg PO DAILY 10/19/15 09/01/16 History Zinc 50 mg PO DAILY 10/19/15 09/01/16 History Aspirin EC [Ecotrin Low Dose] 81 mg PO DAILY 05/25/16 09/01/16 History Albuterol Nebulized [Ventolin 2.5 mg INHALATION RT-BID 09/01/16 09/01/16 History Nebulized] Gabapentin [Neurontin] 400 mg PO TID 09/01/16 09/01/16 History HYDROcodone/APAP 7.5-325MG [[place] 1 tab PO HS 09/01/16 09/01/16 History 7.5-325] Ibuprofen [Motrin] 800 mg PO BID PRN 09/01/16 09/01/16 History Umeclidinium [place] [Incruse 1 puff INHALATION RT-DAILY 09/01/16 09/01/16 History Ellipta] Allergies Allergy/AdvReac Type Severity Reaction Status Date / Time vancomycin Allergy Severe Anaphylaxis Verified 09/01/16 13:58 doxycycline Allergy Anaphylaxis Verified 09/01/16 13:58 heparin Allergy Anaphylaxis Verified 09/01/16 13:58 hydromorphone HCl Allergy Anaphylaxis Verified 09/01/16 13:58 [From Dilaudid] Latex, Natural Rubber Allergy Rash/Hives Verified 09/01/16 20:26 linezolid [From Zyvox] Allergy Rash/Hives, Verified 09/01/16 13:58 itching morphine Allergy Anaphylaxis Verified 09/01/16 13:58 warfarin sodium Allergy Rash/Hives Verified 09/01/16 13:58 [From Coumadin] fentanyl AdvReac Nausea & Verified 09/01/16 15:56 Vomiting Physical Exam Osteopathic Statement: *. No significant issues noted on an osteopathic structural exam other than those noted in the History and Physical/Consult. Vitals: Vital Signs Temp Pulse Pulse Resp BP BP Pulse Ox 09/02/16 12:00 97.8 F 88 16 118/68 95 09/02/16 07:57 84 09/02/16 07:47 80 97 09/02/16 07:45 97.9 F 86 16 106/58 93 L 09/02/16 05:30 97.8 F 82 16 105/58 96 09/02/16 04:00 87 16 09/02/16 00:00 97.7 F 105 H 16 96/59 92 L 09/01/16 21:40 90 09/01/16 21:30 90 09/01/16 20:00 97.6 F 106 H 16 123/72 93 L 09/01/16 18:44 97.4 F L 103 H 18 124/75 95 09/01/16 18:40 103 H 18 09/01/16 18:09 91 14 120/66 98 09/01/16 17:24 101 H 15 150/84 98 Intake and Output 09/01/16 09/02/16 09/02/16 22:59 06:59 14:59 Other: # Voids 1 Weight 62.5 kg Gen.: Patient is alert and oriented 3, no acute distress Cardiovascular: Regular rate and rhythm, S1/S2 Lungs: Clear to auscultation bilaterally no wheezes rales or rhonchi Abdomen: Soft nontender nondistended positive bowel sounds Extremities: No edema Results - Laboratory Findings CBC and BMP: 09/01/16 13:06 09/02/16 01:24 PT/INR, D-dimer PT 10.6 sec (9.0-12.0) 09/01/16 13:06 INR 1.1 (<1.1) 09/01/16 13:06 D-Dimer 1.00 mg/L FEU (<0.60) H 09/01/16 13:06 Abnormal lab findings: Abnormal Labs 09/01/16 09/02/16 18:58 01:24 Sodium 148 H Chloride 112 H Total Protein 5.7 L Albumin 3.1 L Amylase <30 L - Diagnostic Findings Chest x-ray: report reviewed, image reviewed Assessment and Plan Plan: Acute chest pain, possibly pleuritic Apparent history of COPD, however lifelong never smoker Cough, tracheobronchitis History of MS History of PE and DVT Elevated d-dimer Hypernatremia History of mitral valve repair Hypertension Chronic pain syndrome Maintain saturation greater than equal to 88% We'll check CTA of the chest Bronchodilators Singulair IV fluid hydration, will change to half-normal saline Sputum culture Mucinex Check IgE/RAST/HP panel Outpatient pulmonary follow up with PFT recommended. Thank you for this consult. We will continue to follow along.
--- NOTE | 2016-09-02 16:25 | CT ---
EXAMINATION TYPE: CT chest angio for PE DATE OF EXAM: 09/02/2016 4:14 PM COMPARISON: CT chest January 24, 2016 HISTORY: Pt states of SOB. CT DLP: 177.8 mGycm Automated exposure control for dose reduction was used. CONTRAST: CT Chest for pulmonary embolism performed with with IV Contrast, patient injected with 80 mL of Omnip aque 350. FINDINGS: LUNGS: Mild apical scarring is present bilaterally. There is additional linear scarring and/or atelec tasis in both lower lungs. There is no concerning parenchymal nodule or mass present. No pleural effu rc or pneumothorax is seen. MEDIASTINUM: There is suboptimal bolus as contrast extravasation occurred, there is no CT evidence fo r large central pulmonary embolism, smaller segmental and subsegmental PE cannot be excluded on this exam. There are no greater than 1 cm hilar or mediastinal lymph nodes. No pericardial effusion is seen. Sternal wires are identified. There is evidence of prior surgery at level of the mitral valve. No cardiomegaly is identified. OTHER: Cholecystectomy clips are redemonstrated. Osseous structures are demineralized. Multiple vert ebral plasties are identified at a different levels in the thoracolumbar spine. Teena Quinonez from [facility] surgery is partially imaged causing streak artifact. IMPRESSION: 1. Suboptimal bolus, no CT evidence for large central pulmonary embolism. Smaller segmental and subse gmental PE cannot be excluded on this exam. 2. Bibasilar atelectatic change and/or scarring slightly more prominent versus prior. No worrisome ac alva pulmonary process is seen.
--- NOTE | 2016-09-02 19:42 | P.PN ---
Subjective Patient is being evaluated for acute chest pain. She has a history of Multiple Sclerosis and stroke in the past. The patient is being evaluated for acute chest pain. There was concern for possibility of pulmonary embolus. She underwent a CTA angiogram today which failed to reveal any definitive evidence for pulmonary embolism. She is being followed by pulmonary medicine and we will await their further recommendations. She is also been seen by cardiology and is to undergo an echocardiogram. Her current chest pain symptoms are not felt to be cardiac in origin. Patient continues to have mild symptoms of possible MS exacerbation. She was once again advised to consider a short course of IV Solu-Medrol at 60 mg daily. She continues to have some symptoms of left-sided paresthesias and right ocular discomfort and blurring of vision. We will continue to work with the other specialists in terms of further management of her current condition. We will await further recommendations for multiple specialists that are seeing this patient during this admission. Objective - Vital Signs Vital signs: Vital Signs Temp 97.5 F L 09/02/16 16:00 Pulse 85 09/02/16 16:00 Resp 16 09/02/16 16:00 BP 118/68 09/02/16 16:00 Pulse Ox 96 09/02/16 16:00 Intake & Output 09/01/16 09/02/16 09/02/16 18:59 06:59 18:59 Weight 62.5 kg Other: Voiding Method Toilet # Voids 1 - Exam Physical examination: PHYSICAL EXAMINATION: Patient is resting comfortably in bed. VITAL SIGNS: Blood pressure is [118/68]. Heart rate is [85]. Respiration is [16] . Temperature is [97.5]. HEENT: Head is atraumatic, neck is supple, there were no carotid bruits. CHEST: Lungs are clear to auscultation and percussion. CARDIAC: S1, S2 normal rate and rhythm. There is no murmur. ABDOMEN: Soft and nontender. Bowel sounds are present. EXTREMITIES: There is no pedal edema. Peripheral pulses are present. Neurological examination: Patient's neurological examination is unchanged from yesterday. - Labs CBC & Chem 7: 09/01/16 13:06 09/02/16 01:24 Labs: Abnormal Lab Results - Last 24 Hours (Table) 09/01/16 09/02/16 Range/Units 18:58 01:24 Sodium 148 H (137-145) mmol/L Chloride 112 H (98-107) mmol/L Total Protein 5.7 L (6.3-8.2) g/dL Albumin 3.1 L (3.5-5.0) g/dL Amylase <30 L (30-110) U/L Assessment and Plan (1) Pleuritic chest pain Status: Acute Code(s): R07.81 - PLEURODYNIA (2) Blurred vision, right eye Status: Acute Code(s): H53.8 - OTHER VISUAL DISTURBANCES (3) Exacerbation of multiple sclerosis Status: Acute Code(s): G35 - MULTIPLE SCLEROSIS (4) History of CVA (cerebrovascular accident) Status: Chronic Code(s): Z86.73 - PRSNL HX OF TIA (TIA), AND CEREB INFRC W/O RESID DEFICITS Plan: This patient is a 56-year-old female who has a long-standing history of multiple sclerosis. She had an episode of acute pleuritic chest pain involving the left chest wall. 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 She was brought into the emergency room as she was concerned about having suffered an acute myocardial infarction. She was seen in the ER and sent for computed tomography scan of the brain. CAT scan failed to reveal any evidence of acute stroke. She does have evidence of an old right frontal lobe infarct. The patient also complained of symptoms of vision changes and double vision recently. Given her history of MS she was suggested to begin a short course of IVs Solu-Medrol for treatment of possible MS exacerbation. Patient has declined at this time and we will need to follow her course closely over the next 24 hours. Patient did undergo a V/Q perfusion study of the lungs. There was a single matching defect in the left lung base. We are waiting further recommendations from pulmonary medicine. Patient underwent CT angiogram of the lungs today and we're waiting the final report and further recommendations from pulmonary medicine. At this time we will continue close monitoring of the patient. She is once again recommended to consider a short course of IV steroid therapy for possible mild MS exacerbation. Further workup of her chest pain is ongoing. Her overall prognosis at this time remains guarded.
[2016-09-02] MEDS: guaiFENesin 600 MG TABLET.ER PO SCH (20:47)
[2016-09-02] MEDS: HYDROcodone/APAP 7.5-325MG 1 EACH TAB PO PRN (20:47)
[2016-09-02] MEDS: TEMAZEPAM 30 MG CAP PO PRN (20:47)
[2016-09-02] MEDS: predniSONE 20 MG TAB PO SCH ×2 (20:48→23:40)
[2016-09-03] MEDS: TIOTROPIUM 18 MCG/PUFF INHALER INHALATION SCH (07:47)
[2016-09-03] MEDS: ALBUTEROL NEBULIZED 2.5 MG/3 ML INHALATION SCH ×2 (07:47→19:11)
--- NOTE | 2016-09-03 07:49 | P.PN ---
Subjective Principal diagnosis: Chest pain This is a pleasant 56-year-old female patient with past medical history significant for mitral valve repair was performed about 15 years ago at [facility], multiple sclerosis, and COPD, presented to the hospital was atypical chest discomfort. She is not aware of any history of CAD or prior revascularization. She was ruled out for acute coronary event by normal EKG and normal cardiac enzymes. The d-dimer was mildly elevated and the patient underwent a CTA which came in to be negative for PE. Clinically she continues to be pain-free after she was admitted to the hospital. From the cardiovascular standpoint of view, the patient can be discharged home. She is to have a stress test done as an outpatient. Objective - Vital Signs Vital signs: Vital Signs Temp 97.9 F 09/03/16 07:45 Pulse 91 09/03/16 07:45 Resp 16 09/03/16 07:45 BP 117/76 09/03/16 07:45 Pulse Ox 96 09/03/16 07:45 Intake & Output 09/02/16 09/03/16 09/03/16 18:59 06:59 18:59 Intake Total 200 Balance 200 Intake: Oral 200 Other: Voiding Method Toilet Toilet # Voids 1 1 - Constitutional General appearance: Present: no acute distress - Respiratory Respiratory: bilateral: CTA - Cardiovascular Rhythm: regular Heart sounds: normal: S1, S2 - Labs CBC & Chem 7: 09/01/16 13:06 09/02/16 01:24 Labs: Abnormal Lab Results - Last 24 Hours (Table) 09/02/16 Range/Units 01:24 Sodium 148 H (137-145) mmol/L Chloride 112 H (98-107) mmol/L Total Protein 5.7 L (6.3-8.2) g/dL Albumin 3.1 L (3.5-5.0) g/dL Assessment and Plan Plan: Assessment #1 atypical chest pain #2 COPD #3 history of mitral valve repair Plan #1 the echo showed normally functioning mitral valve #2 from the cardiovascular standpoint of view, the patient can be discharged home
[2016-09-03] MEDS: LORATADINE 10 MG TAB PO SCH (08:31)
[2016-09-03] MEDS: MONTELUKAST 10 MG TAB PO SCH (08:31)
[2016-09-03] MEDS: GABAPENTIN 400 MG CAP PO SCH ×3 (08:31→21:30)
[2016-09-03] MEDS: guaiFENesin 600 MG TABLET.ER PO SCH ×2 (08:31→21:30)
[2016-09-03] MEDS: ASPIRIN 81 MG CHEW PO SCH (08:31)
[2016-09-03] MEDS: BACLOFEN 10 MG TAB PO SCH ×3 (08:31→21:30)
[2016-09-03] MEDS: predniSONE 20 MG TAB PO SCH (08:32)
[2016-09-03] MEDS: ALPRAZolam 0.5 MG TAB PO SCH ×2 (08:32→21:29)
[2016-09-03] MEDS: cycloSPORINE 0.05% OPHTH 0.4 ML DROPERETTE BOTH EYES SCH ×2 (08:32→21:29)
[2016-09-03] MEDS: HYDROcodone/APAP 7.5-325MG 1 EACH TAB PO PRN (08:56)
[2016-09-03] MEDS: CYCLOBENZAPRINE 10 MG TAB PO PRN (09:48)
[2016-09-03] MEDS: ASCORBIC ACID 500 MG TAB PO SCH (11:13)
[2016-09-03] MEDS: MAGNESIUM OXIDE 250 MG TAB PO SCH (11:13)
[2016-09-03] MEDS: LACTOBACILLUS ACIDOPH & BULGAR 1 EACH PACKET PO SCH (11:13)
[2016-09-03] MEDS: MULTIVITAMINS, THERA 1 EACH TAB PO SCH (11:13)
[2016-09-03] MEDS: ZINC GLUCONATE 50 MG TAB PO SCH (11:13)
[2016-09-03] MEDS: CHOLECALCIFEROL 1,000 UNIT TAB PO SCH (11:13)
[2016-09-03] MEDS: methylPREDNISolone SOD SUCCI 125 MG/2 ML VIAL IV SCH ×2 (13:29→23:37)
--- NOTE | 2016-09-03 15:50 | PN ---
DATE OF SERVICE: 09/03/2016 She continues to have some chest pain and back pain. They are unable to get IVs in her at this time. On physical examination, respiratory rate 17, pulse rate of 92, temperature 98.4, blood pressure 120/68. HEENT: Reveals pupils that are equal. No jugular venous distention. Chest reveals decreased breath sounds. No clear wheeze. Cardiovascular system reveals an S1, S2. ABDOMEN: Soft. There is no pedal edema. Labs reveal sodium 148, potassium 4.5, chloride 112, bicarb 23, BUN 11, creatinine 0.99, albumin of 3.1. Ig is 42.3. IMPRESSION: 1. Acute chest pain, which seems to be negative for acute pulmonary embolism at this time. 2. Asthma with acute exacerbation is likely. 3. History of mitral valve disease. 4. Hypernatremia. 5. History of multiple sclerosis. At this point in time, continue her on Montelukast, albuterol, IV steroids, we will have vascular surgery further evaluate the patient for IV access. Depending on how she does, we shall make further changes to her care.
--- NOTE | 2016-09-03 16:21 | P.PN ---
Progress Note - Text Well known to Dr. Jones Multiple mediport placements with susequent vessel thrombosis. Known heparin allergy Last mediport placed in right internal jugular vein "stopped working". Multiple PICC lines with subsequent vessel thrombosis. Prior to subsequent port/device placement for IV meds, patient will require central venography. Will hold off at present time and discuss with Dr. Jones.
[2016-09-03] MEDS: MEPERIDINE 50 MG/ML SYRINGE IVP PRN ×2 (16:25→23:37)
[2016-09-03] MEDS ORDERED: MEPERIDINE 50 MG/ML SYRINGE IVP SCH (16:30)
--- NOTE | 2016-09-03 16:58 | P.PN ---
Subjective Patient is being evaluated for acute chest pain. She has a history of Multiple Sclerosis and stroke in the past. The patient is being evaluated for acute chest pain. There was concern for possibility of pulmonary embolus. She underwent a CTA angiogram today which failed to reveal any definitive evidence for pulmonary embolism. She is being followed by pulmonary medicine and we will await their further recommendations. She is also been seen by cardiology and is to undergo an echocardiogram. Her current chest pain symptoms are not felt to be cardiac in origin. Patient continues to have mild symptoms of possible MS exacerbation. She was once again advised to consider a short course of IV Solu-Medrol at 60 mg IV piggyback every 8 hours. She continues to have some symptoms of left-sided paresthesias and right ocular discomfort and blurring of vision. Patient also noted today some right-sided arm weakness. She also has evidence of occipital neuritic pain as well as mild headaches. She is being treated for specific pain medication today. Apparently she is to use Demerol. Vascular surgery was consulted for central line placement. We are awaiting further recommendations from vascular surgery regarding IV access. We would recommend physical therapy consultation for the patient. We will continue to work with the other specialists in terms of further management of her current condition. We will await further recommendations for multiple specialists that are seeing this patient during this admission. Objective - Vital Signs Vital signs: Vital Signs Temp 98.4 F 09/03/16 14:18 Pulse 92 09/03/16 14:18 Resp 17 09/03/16 14:18 BP 120/68 09/03/16 14:18 Pulse Ox 98 09/03/16 14:18 Intake & Output 09/02/16 09/03/16 09/03/16 18:59 06:59 18:59 Intake Total 200 1160 Balance 200 1160 Intake: Oral 200 1160 Other: Voiding Method Toilet Toilet Toilet # Voids 1 1 - Exam Physical examination: PHYSICAL EXAMINATION: Patient is resting comfortably in bed. VITAL SIGNS: Blood pressure is [120/68]. Heart rate is [92]. Respiration is [17] . Temperature is [98.4]. HEENT: Head is atraumatic, neck is supple, there were no carotid bruits. CHEST: Lungs are clear to auscultation and percussion. CARDIAC: S1, S2 normal rate and rhythm. There is no murmur. ABDOMEN: Soft and nontender. Bowel sounds are present. EXTREMITIES: There is no pedal edema. Peripheral pulses are present. Neurological examination: Patient's neurological examination is unchanged from yesterday. Patient has noted slight right arm weakness. She does have bilateral occipital tenderness on palpation. - Labs CBC & Chem 7: 09/01/16 13:06 09/02/16 01:24 Assessment and Plan (1) Pleuritic chest pain Status: Acute Code(s): R07.81 - PLEURODYNIA (2) Blurred vision, right eye Status: Acute Code(s): H53.8 - OTHER VISUAL DISTURBANCES (3) Exacerbation of multiple sclerosis Status: Acute Code(s): G35 - MULTIPLE SCLEROSIS (4) History of CVA (cerebrovascular accident) Status: Chronic Code(s): Z86.73 - PRSNL HX OF TIA (TIA), AND CEREB INFRC W/O RESID DEFICITS Plan: This patient is a 56-year-old female who has a long-standing history of multiple sclerosis. She had an episode of acute pleuritic chest pain involving the left chest wall. 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 She was brought into the emergency room as she was concerned about having suffered an acute myocardial infarction. She was seen in the ER and sent for computed tomography scan of the brain. CAT scan failed to reveal any evidence of acute stroke. She does have evidence of an old right frontal lobe infarct. The patient also complained of symptoms of vision changes and double vision recently. Given her history of MS she was suggested to begin a short course of IVs Solu-Medrol for treatment of possible MS exacerbation. Patient has declined at this time and we will need to follow her course closely over the next 24 hours. Patient did undergo a V/Q perfusion study of the lungs. There was a single matching defect in the left lung base. We are waiting further recommendations from pulmonary medicine. Patient underwent CT angiogram of the lungs today and we are awaiting the final report and further recommendations from pulmonary medicine. Pulmonary medicine did review her recent CT angiogram which is negative for any evidence of pulmonary embolus. At this time we will continue close monitoring of the patient. She is once again recommended to consider a short course of IV steroid therapy for possible mild MS exacerbation. She has been started on IV Solu-Medrol 60 mg IV piggyback every 8 hours. Vascular surgery was consulted for central line placement. We are waiting the recommendations. Further workup of her chest pain is ongoing. We would recommend a consult physical therapy for this patient and continue pain management as she tolerates. Her overall prognosis at this time remains guarded.
--- NOTE | 2016-09-03 17:16 | PN ---
SUBJECTIVE: A 56-year-old white female with pleuritic-type chest pain and MS exacerbation today. She is unable to open her right hand and limited strength in her right arm, even though she has been walking down the [place] this morning, her right leg and is now moving a little about 50% of her normal. CARDIOVASCULAR: S1, S2. LUNGS: Clear. GI: Anxious. PSYCH: Anxious. NEUROLOGIC: Alert and oriented x3. ASSESSMENT: Acute multiple sclerosis exacerbation. We have had a large amount of difficulty getting an IV access. Central line has been ordered. IV Solu-Medrol will be started per neurology's recommendations. Oral prednisone will be held ( ) IV Solu-Medrol is going. Pain medicine will be given for what the patient is not allergic to. Please see further orders on the chart. Prognosis is guarded.
[2016-09-03] MEDS: TEMAZEPAM 30 MG CAP PO PRN (23:24)
[2016-09-04] MEDS: ALBUTEROL NEBULIZED 2.5 MG/3 ML INHALATION SCH ×2 (07:35→19:27)
[2016-09-04] MEDS: TIOTROPIUM 18 MCG/PUFF INHALER INHALATION SCH (07:37)
[2016-09-04] MEDS: MEPERIDINE 50 MG/ML SYRINGE IVP PRN ×4 (07:51→23:26)
[2016-09-04] MEDS: ALPRAZolam 0.5 MG TAB PO SCH ×2 (07:51→20:24)
[2016-09-04] MEDS: methylPREDNISolone SOD SUCCI 125 MG/2 ML VIAL IV SCH ×3 (07:52→23:26)
[2016-09-04] MEDS: ASPIRIN 81 MG CHEW PO SCH (07:53)
[2016-09-04] MEDS: BACLOFEN 10 MG TAB PO SCH ×3 (07:53→20:25)
[2016-09-04] MEDS: cycloSPORINE 0.05% OPHTH 0.4 ML DROPERETTE BOTH EYES SCH ×2 (07:53→20:24)
[2016-09-04] MEDS: GABAPENTIN 400 MG CAP PO SCH ×3 (07:53→20:25)
[2016-09-04] MEDS: LORATADINE 10 MG TAB PO SCH (07:53)
[2016-09-04] MEDS: ASCORBIC ACID 500 MG TAB PO SCH (07:54)
[2016-09-04] MEDS: MAGNESIUM OXIDE 250 MG TAB PO SCH (07:54)
[2016-09-04] MEDS: MONTELUKAST 10 MG TAB PO SCH (07:54)
[2016-09-04] MEDS: LACTOBACILLUS ACIDOPH & BULGAR 1 EACH PACKET PO SCH (07:54)
[2016-09-04] MEDS: MULTIVITAMINS, THERA 1 EACH TAB PO SCH (07:54)
[2016-09-04] MEDS: ZINC GLUCONATE 50 MG TAB PO SCH (07:54)
[2016-09-04] MEDS: CHOLECALCIFEROL 1,000 UNIT TAB PO SCH (07:54)
[2016-09-04] MEDS: guaiFENesin 600 MG TABLET.ER PO SCH ×2 (07:54→20:25)
[2016-09-04] MEDS ORDERED: BENZOCAINE/MENTHOL LOZENG 1 EACH LOZENGE MUCOUS MEM PRN (10:33)
[2016-09-04] MEDS: IBUPROFEN 800 MG TAB PO PRN (10:45)
[2016-09-04] MEDS: NYSTATIN 100,000 UNIT/ML SUSP 500,000 UNIT/5 ML CUP PO SCH ×3 (12:58→20:25)
--- NOTE | 2016-09-04 16:42 | P.PN ---
Subjective Patient is being evaluated for acute chest pain. She has a history of Multiple Sclerosis and stroke in the past. The patient is being evaluated for acute chest pain. There was concern for possibility of pulmonary embolus. She underwent a CTA angiogram today which failed to reveal any definitive evidence for pulmonary embolism. She is being followed by pulmonary medicine and we will await their further recommendations. She is also been seen by cardiology and is to undergo an echocardiogram. Her current chest pain symptoms are not felt to be cardiac in origin. Patient continues to have mild symptoms of possible MS exacerbation. She was once again advised to consider a short course of IV Solu-Medrol at 60 mg IV piggyback every 8 hours. She continues to have some symptoms of left-sided paresthesias and right ocular discomfort and blurring of vision. Patient also noted today some right-sided arm weakness. She also has evidence of occipital neuritic pain as well as mild headaches. She is being treated for specific pain medication today. Apparently she is to use Demerol. Vascular surgery was consulted for central line placement. We are awaiting further recommendations from vascular surgery regarding IV access. We would recommend physical therapy consultation for the patient. We will continue to work with the other specialists in terms of further management of her current condition. We will await further recommendations for multiple specialists that are seeing this patient during this admission. Objective - Vital Signs Vital signs: Vital Signs Temp 97.9 F 09/04/16 15:00 Pulse 78 09/04/16 16:00 Resp 16 09/04/16 16:00 BP 111/56 09/04/16 15:00 Pulse Ox 95 09/04/16 15:00 Intake & Output 09/03/16 09/04/16 09/04/16 18:59 06:59 18:59 Intake Total 1160 950 Balance 1160 950 Intake: Oral 1160 950 Other: Voiding Method Toilet Bedside Commode Bedside Commode # Voids 2 2 2 # Bowel Movements 1 - Exam Physical examination: PHYSICAL EXAMINATION: Patient is resting comfortably in bed. VITAL SIGNS: Blood pressure is [120/68]. Heart rate is [92]. Respiration is [17] . Temperature is [98.4]. HEENT: Head is atraumatic, neck is supple, there were no carotid bruits. CHEST: Lungs are clear to auscultation and percussion. CARDIAC: S1, S2 normal rate and rhythm. There is no murmur. ABDOMEN: Soft and nontender. Bowel sounds are present. EXTREMITIES: There is no pedal edema. Peripheral pulses are present. Neurological examination: Patient's neurological examination is unchanged from yesterday. Patient has noted slight right arm weakness. She does have bilateral occipital tenderness on palpation. - Labs CBC & Chem 7: 09/01/16 13:06 09/02/16 01:24 Assessment and Plan (1) Pleuritic chest pain Status: Acute Code(s): R07.81 - PLEURODYNIA (2) Blurred vision, right eye Status: Acute Code(s): H53.8 - OTHER VISUAL DISTURBANCES (3) Exacerbation of multiple sclerosis Status: Acute Code(s): G35 - MULTIPLE SCLEROSIS (4) History of CVA (cerebrovascular accident) Status: Chronic Code(s): Z86.73 - PRSNL HX OF TIA (TIA), AND CEREB INFRC W/O RESID DEFICITS Plan: This patient is a 56-year-old female who has a long-standing history of multiple sclerosis. She had an episode of acute pleuritic chest pain involving the left chest wall. 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 She was brought into the emergency room as she was concerned about having suffered an acute myocardial infarction. She was seen in the ER and sent for computed tomography scan of the brain. CAT scan failed to reveal any evidence of acute stroke. She does have evidence of an old right frontal lobe infarct. The patient also complained of symptoms of vision changes and double vision recently. Given her history of MS she was suggested to begin a short course of IVs Solu-Medrol for treatment of possible MS exacerbation. Patient has declined at this time and we will need to follow her course closely over the next 24 hours. Patient did undergo a V/Q perfusion study of the lungs. There was a single matching defect in the left lung base. We are waiting further recommendations from pulmonary medicine. Patient underwent CT angiogram of the lungs today and we are awaiting the final report and further recommendations from pulmonary medicine. Pulmonary medicine did review her recent CT angiogram which is negative for any evidence of pulmonary embolus. At this time we will continue close monitoring of the patient. She is once again recommended to consider a short course of IV steroid therapy for possible mild MS exacerbation. She has been started on IV Solu-Medrol 60 mg IV piggyback every 8 hours. Vascular surgery was consulted for central line placement. We are waiting the recommendations. Patient with no significant changes in her overall neurological exam findings. She continues to have some right-sided arm weakness. Further workup of her chest pain is ongoing. We would recommend a consult physical therapy for this patient and continue pain management as she tolerates. She'll be evaluated for physical therapy and may consider inpatient rehab placement depending on her response. Her overall prognosis at this time remains guarded.
--- NOTE | 2016-09-04 19:22 | PN ---
DATE OF SERVICE: 09/04/2016. She has remained hemodynamically stable. She continues to have some chest pain. On physical examination, respiratory rate 16, pulse rate of 78, blood pressure 108/60, temperature 97.5. HEENT is unremarkable. Chest reveals occasional rhonchi. Cardiovascular system reveals an S1, S2. ABDOMEN: Soft. There is no pedal edema. IMPRESSION: 1. Acute chest pain and not due to pulmonary embolism. 2. Asthma with acute exacerbation. 3. Multiple sclerosis. 4. Hypernatremia. At this point in time, continue her on her current medications. Vascular surgery is following regarding a vascular access on her.
--- NOTE | 2016-09-04 19:44 | PN ---
SUBJECTIVE: This 56-year-old white female with MS exacerbation, still has left leg weakness and right arm weakness, right arm contraction. No chest pain. No shortness of breath. No lightheadedness, dizziness or syncope. CARDIOVASCULAR: S1, S2. LUNGS: Clear. GI: Soft. MUSCULOSKELETAL: Right arm limited range of motion. Broker Associate strength. Left arm range of motion minimal. ASSESSMENT: 1. Acute multiple sclerosis exacerbation. 2. Acute right arm weakness. 3. Left leg weakness. 4. Fatigue. 5. Atypical chest pain. 6. Chronic obstructive pulmonary disease. 7. Hypernatremia. 8. Anxiety. PLAN: Continue IV steroids per ( ) recommendations, ( ) get physical therapy involved. She has thrush in her mouth, acute onset will give her nystatin swish and swallow 5 mL q.i.d. for 7 days. Moderate protein calorie malnutrition, continue on protein. Elevated IgE suspect allergic asthma continue with current treatment.
[2016-09-04] MEDS: TEMAZEPAM 30 MG CAP PO PRN (23:33)
[2016-09-05] MEDS: IBUPROFEN 800 MG TAB PO PRN (01:29)
[2016-09-05] MEDS: MEPERIDINE 50 MG/ML SYRINGE IVP PRN ×3 (02:31→11:45)
[2016-09-05] MEDS: SODIUM CHLORIDE 0.9% 1,000 ML IV SCH (06:04)
[2016-09-05] MEDS: methylPREDNISolone SOD SUCCI 125 MG/2 ML VIAL IV SCH ×3 (07:17→23:18)
[2016-09-05] MEDS: ALBUTEROL NEBULIZED 2.5 MG/3 ML INHALATION SCH ×2 (07:52→18:54)
[2016-09-05] MEDS: TIOTROPIUM 18 MCG/PUFF INHALER INHALATION SCH (07:52)
[2016-09-05] MEDS: ASPIRIN 81 MG CHEW PO SCH (08:30)
[2016-09-05] MEDS: guaiFENesin 600 MG TABLET.ER PO SCH ×2 (08:30→21:25)
[2016-09-05] MEDS: BACLOFEN 10 MG TAB PO SCH ×3 (08:30→21:25)
[2016-09-05] MEDS: LORATADINE 10 MG TAB PO SCH (08:30)
[2016-09-05] MEDS: NYSTATIN 100,000 UNIT/ML SUSP 500,000 UNIT/5 ML CUP PO SCH ×4 (08:30→21:24)
[2016-09-05] MEDS: cycloSPORINE 0.05% OPHTH 0.4 ML DROPERETTE BOTH EYES SCH ×2 (08:30→21:24)
[2016-09-05] MEDS: GABAPENTIN 400 MG CAP PO SCH ×3 (08:30→21:25)
[2016-09-05] MEDS: MONTELUKAST 10 MG TAB PO SCH (08:31)
[2016-09-05] MEDS: ALPRAZolam 0.5 MG TAB PO SCH ×2 (08:33→21:25)
[2016-09-05] MEDS: CHOLECALCIFEROL 1,000 UNIT TAB PO SCH (11:44)
[2016-09-05] MEDS: ASCORBIC ACID 500 MG TAB PO SCH (11:44)
[2016-09-05] MEDS: MAGNESIUM OXIDE 250 MG TAB PO SCH (11:44)
[2016-09-05] MEDS: ZINC GLUCONATE 50 MG TAB PO SCH (11:44)
[2016-09-05] MEDS: MULTIVITAMINS, THERA 1 EACH TAB PO SCH (11:44)
[2016-09-05] MEDS: LACTOBACILLUS ACIDOPH & BULGAR 1 EACH PACKET PO SCH (11:45)
[2016-09-05] MEDS ORDERED: ALBUTEROL NEBULIZED 2.5 MG/3 ML INHALATION PRN (13:04)
--- NOTE | 2016-09-05 13:04 | P.PN ---
Subjective Principal diagnosis: Chest pain Patient seen and examined. Patient states she was having some back pain overnight which made it hard for her to take a deep breath. She denies any shortness of breath. She states that she does not have a rescue inhaler at home. She is on room air. Objective - Vital Signs Vital signs: Vital Signs Temp 97 F L 09/05/16 07:00 Pulse 76 09/05/16 08:10 Resp 20 09/05/16 07:00 BP 107/61 09/05/16 07:00 Pulse Ox 97 09/05/16 07:00 Intake & Output 09/04/16 09/05/16 09/05/16 18:59 06:59 18:59 Intake Total 382 Balance 382 Weight 62 kg Intake: IV 160 Sodium Chloride 0.9% 1, 160 000 ml @ 20 mls/hr IV . Q24H [facility] Rx#:[id number] Oral 222 Other: Voiding Method Bedside Commode Bedside Commode Bedside Commode # Voids 2 1 # Bowel Movements 1 - Exam Gen.: Patient is alert and oriented 3, no acute distress Cardiovascular: Regular rate and rhythm, S1/S2 Lungs: Clear to auscultation bilaterally no wheezes rales or rhonchi Abdomen: Soft nontender nondistended positive bowel sounds Extremities: No edema - Labs CBC & Chem 7: 09/01/16 13:06 09/02/16 01:24 Assessment and Plan Plan: Acute chest pain, possibly pleuritic Apparent history of COPD, however lifelong never smoker, suspect asthma Cough, tracheobronchitis History of MS History of PE and DVT Elevated d-dimer Hypernatremia History of mitral valve repair Hypertension Chronic pain syndrome Maintain saturation greater than equal to 88% Bronchodilators Singulair RAST/HP panel pending Outpatient pulmonary follow up with PFT recommended. Awaiting neurology and vascular recommendations Okay to DC from pulmonary standpoint Will order Ventolin to use as needed
--- NOTE | 2016-09-05 14:39 | P.PN ---
Subjective 56-year-old female being seen with the attending this morning has multiple chief complaints. Patient states that she has not been out of bed. Patient states she has not been out of bed secondary to having pain involving the left lower extremity. Physical therapy has been participating in the plan of care. Reviewing physical therapy's notes that the patient could be discharged home and would benefit from assistance required for ADLs. They indicate the patient does have decreased strength in the left lower extremity does need assistance getting the left lower extremity and temp bed due to the decreased strength. This been no new events. Objective - Vital Signs Vital signs: Vital Signs Temp 97 F L 09/05/16 07:00 Pulse 76 09/05/16 08:10 Resp 20 09/05/16 07:00 BP 107/61 09/05/16 07:00 Pulse Ox 97 09/05/16 07:00 Intake & Output 09/04/16 09/05/16 09/05/16 18:59 06:59 18:59 Intake Total 382 Balance 382 Weight 62 kg Intake: IV 160 Sodium Chloride 0.9% 1, 160 000 ml @ 20 mls/hr IV . Q24H [facility] Rx#:[id number] Oral 222 Other: Voiding Method Bedside Commode Bedside Commode Bedside Commode # Voids 2 1 # Bowel Movements 1 - Exam Physical exam 56-year-old female looking older than stated age resting in bed talkative oriented 3 Lungs diminished at the bases otherwise adequate air movement on room air Heart S1-S2 audible regular Abdomen soft nontender no reports of nausea vomiting Extremities no edema noted - Labs CBC & Chem 7: 09/01/16 13:06 09/02/16 01:24 Assessment and Plan Plan: Impression Present on admission chest pain suspect pleuritic Apparent history of COPD suspect asthma Lifelong nonsmoker Cough suspect due to tracheobronchitis Chronic pain syndrome narcotic dependency History of mitral valve repair Hypernatremia History of a pulmonary emboli and DVT Elevated d-dimer with a computed tomography scan of the chest no evidence of a pulmonary emboli Present on admission blurred vision right eye An acute exacerbation of multiple sclerosis History of a prior CVA without residual deficits Multiple sclerosis primary chronic progressive Anxiety depressive disorder nonspecified Plan Continue with recommendations by neurology service DVT and GI prophylaxis Fall precautions PT OT eval Solu-Medrol 60 IV Q8 defer to by neurology for tapering Further recommendations pending will follow Resume home meds as appropriate The above dictated assessment and findings were discussed with Dr. Montalvo. Impression and the plan of care have been dictated as directed. Deepthi Pierre nurse practitioner acting as a scribe for Dr. Montalvo
[2016-09-05 15:32] VITALS: RESP 16
[2016-09-05] MEDS ORDERED: MEPERIDINE 50 MG/ML SYRINGE IVP PRN (15:46)
[2016-09-05] MEDS: HYDROcodone/APAP 7.5-325MG 1 EACH TAB PO PRN ×2 (17:03→22:01)
--- NOTE | 2016-09-05 21:49 | P.PN ---
Subjective Patient is being evaluated for acute chest pain. She has a history of Multiple Sclerosis and stroke in the past. The patient is being evaluated for acute chest pain. There was concern for possibility of pulmonary embolus. She underwent a CTA angiogram today which failed to reveal any definitive evidence for pulmonary embolism. She is being followed by pulmonary medicine and we will await their further recommendations. She is also been seen by cardiology and is to undergo an echocardiogram. Her current chest pain symptoms are not felt to be cardiac in origin. Patient continues to have mild symptoms of possible MS exacerbation. She was once again advised to consider a short course of IV Solu-Medrol at 60 mg IV piggyback every 8 hours. She continues to have some symptoms of left-sided paresthesias and right ocular discomfort and blurring of vision. Patient also noted today some right-sided arm weakness. She also has evidence of occipital neuritic pain as well as mild headaches. She is being treated for specific pain medication today. Apparently she is to use Demerol. Vascular surgery was consulted for central line placement. We are awaiting further recommendations from vascular surgery regarding IV access. We would recommend physical therapy consultation for the patient. We will continue to work with the other specialists in terms of further management of her current condition. Patient mentions that her left-sided weakness did seem to worsen slightly from yesterday. She was recommended to undergo inpatient subacute rehabilitation. Patient refuses to be admitted to subacute rehab at this time. She wants to go home and states that her is with her 24 hours a day and will be giving her help and assistance as well as some therapy. The patient symptoms of vision changes and paresthesias have improved on the IV Solu-Medrol. We recommend that the IV Solu-Medrol be discontinued tomorrow and she may be started on tapering doses of prednisone 60 mg daily with weekly reductions of 10 mg over the next 6 weeks. Patient may follow-up in the outpatient neurology clinic in 2-3 weeks after discharge. We will await further recommendations for multiple specialists that are seeing this patient during this admission. Objective - Vital Signs Vital signs: Vital Signs Temp 96.4 F L 09/05/16 15:00 Pulse 78 09/05/16 19:02 Resp 16 09/05/16 15:00 BP 132/80 09/05/16 15:00 Pulse Ox 97 09/05/16 15:00 Intake & Output 09/05/16 09/05/16 09/06/16 06:59 18:59 06:59 Intake Total 382 Balance 382 Weight 62 kg Intake: IV 160 Sodium Chloride 0.9% 1, 160 000 ml @ 20 mls/hr IV . Q24H [facility] Rx#:[id number] Oral 222 Other: Voiding Method Bedside Commode Bedside Commode Bedside Commode # Voids 1 2 1 # Bowel Movements 1 - Exam Physical examination: PHYSICAL EXAMINATION: Patient is resting comfortably in bed. VITAL SIGNS: Blood pressure is [132/80]. Heart rate is [77]. Respiration is [16] . Temperature is [96.4]. HEENT: Head is atraumatic, neck is supple, there were no carotid bruits. CHEST: Lungs are clear to auscultation and percussion. CARDIAC: S1, S2 normal rate and rhythm. There is no murmur. ABDOMEN: Soft and nontender. Bowel sounds are present. EXTREMITIES: There is no pedal edema. Peripheral pulses are present. Neurological examination: Patient's neurological examination is unchanged from yesterday. Patient has noted slight right arm weakness. She does have bilateral occipital tenderness on palpation. - Labs CBC & Chem 7: 09/01/16 13:06 09/02/16 01:24 Assessment and Plan (1) Pleuritic chest pain Status: Acute Code(s): R07.81 - PLEURODYNIA (2) Blurred vision, right eye Status: Acute Code(s): H53.8 - OTHER VISUAL DISTURBANCES (3) Exacerbation of multiple sclerosis Status: Acute Code(s): G35 - MULTIPLE SCLEROSIS (4) History of CVA (cerebrovascular accident) Status: Chronic Code(s): Z86.73 - PRSNL HX OF TIA (TIA), AND CEREB INFRC W/O RESID DEFICITS Plan: This patient is a 56-year-old female who has a long-standing history of multiple sclerosis. She had an episode of acute pleuritic chest pain involving the left chest wall. 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 She was brought into the emergency room as she was concerned about having suffered an acute myocardial infarction. She was seen in the ER and sent for computed tomography scan of the brain. CAT scan failed to reveal any evidence of acute stroke. She does have evidence of an old right frontal lobe infarct. The patient also complained of symptoms of vision changes and double vision recently. Given her history of MS she was suggested to begin a short course of IVs Solu-Medrol for treatment of possible MS exacerbation. Patient has declined at this time and we will need to follow her course closely over the next 24 hours. Patient did undergo a V/Q perfusion study of the lungs. There was a single matching defect in the left lung base. We are waiting further recommendations from pulmonary medicine. Patient underwent CT angiogram of the lungs today and we are awaiting the final report and further recommendations from pulmonary medicine. Pulmonary medicine did review her recent CT angiogram which is negative for any evidence of pulmonary embolus. At this time we will continue close monitoring of the patient. She is once again recommended to consider a short course of IV steroid therapy for possible mild MS exacerbation. She has been started on IV Solu-Medrol 60 mg IV piggyback every 8 hours. Vascular surgery was consulted for central line placement. We are waiting the recommendations. Patient with no significant changes in her overall neurological exam findings. She continues to have some right-sided arm weakness and some left-sided weakness. Further workup of her chest pain is ongoing. We would recommend a consult physical therapy for this patient and continue pain management as she tolerates. Patient was recommended inpatient subacute rehabilitation but she is refused to go to rehab at this time. She most likely will be discharged home tomorrow with ongoing therapy today be done in the outpatient setting at home. Patient may be discontinued off of IV Solu- Medrol tomorrow. She is to start on tapering doses of oral prednisone with 60 mg daily for the first week and reduction of 10 mg per week over the next 6 weeks. Patient may follow-up in the outpatient neurology clinic in 3-4 weeks following discharge. As noted patient wishes to be discharged home tomorrow and will continue with therapy at home setting with assistance from her . Her overall prognosis at this time remains guarded.
[2016-09-06] MEDS: TEMAZEPAM 30 MG CAP PO PRN (01:20)
[2016-09-06] MEDS: IBUPROFEN 800 MG TAB PO PRN ×2 (01:22→10:21)
[2016-09-06] MEDS: methylPREDNISolone SOD SUCCI 125 MG/2 ML VIAL IV SCH (07:32)
[2016-09-06] MEDS: ALPRAZolam 0.5 MG TAB PO SCH (07:33)
[2016-09-06] MEDS: NYSTATIN 100,000 UNIT/ML SUSP 500,000 UNIT/5 ML CUP PO SCH (07:33)
[2016-09-06] MEDS: guaiFENesin 600 MG TABLET.ER PO SCH (07:34)
[2016-09-06] MEDS: MONTELUKAST 10 MG TAB PO SCH (07:34)
[2016-09-06] MEDS: GABAPENTIN 400 MG CAP PO SCH (07:34)
[2016-09-06] MEDS: LORATADINE 10 MG TAB PO SCH (07:34)
[2016-09-06] MEDS: BACLOFEN 10 MG TAB PO SCH (07:34)
[2016-09-06] MEDS: cycloSPORINE 0.05% OPHTH 0.4 ML DROPERETTE BOTH EYES SCH (07:34)
[2016-09-06] MEDS: TIOTROPIUM 18 MCG/PUFF INHALER INHALATION SCH (07:35)
[2016-09-06] MEDS: ASPIRIN 81 MG CHEW PO SCH (07:35)
[2016-09-06] MEDS: ALBUTEROL NEBULIZED 2.5 MG/3 ML INHALATION SCH (07:35)
[2016-09-06] MEDS: SODIUM CHLORIDE 0.9% 1,000 ML IV SCH (07:38)
[2016-09-06 08:04] VITALS: BP 143/81; PULSE 63; TEMP 97.1
[2016-09-06] MEDS: HYDROcodone/APAP 7.5-325MG 1 EACH TAB PO PRN (09:33)
--- NOTE | 2016-09-06 10:06 | P.DS ---
Providers Date of admission: 09/01/16 16:11 Expected date of discharge: 09/06/16 Attending physician: Israel Montalvo Consults: 09/01/16 18:42 Consult Physician Routine Consulting Provider: Amos Stratton Consult Reason/Comments: ms/dizziness Do you want consulting provider notified?: Yes 09/03/16 11:16 Consult Physician Routine Consulting Provider: Yary West Consult Reason/Comments: iv access Do you want consulting provider notified?: Yes Primary care physician: [facility] Course: 6-year-old female who presented with a chief complaint of developing acute pleuritic chest pain. Patient stated that she was driving a car when another way home from receiving an ALLERGY shot at her physician's office she developed excruciating chest pain. Patient stated was mostly on the left chest wall. Patient came to the emergency room was evaluated. Patient went for CAT scan of the brain emergency room it showed old right frontal lobe infarct with encephalomalacia. There was no evidence of acute stroke or hemorrhage. Patient was evaluated for the acute pleuritic chest pain was seen by cardiology service. Patient does have a history of having mitral valve repair done at [facility] about 10 years ago. Patient does see Dr. Wilson her primary outfitter cabin but she states she hasn't seen him for years. Patient was given a diagnosis of multiple sclerosis and COPD. The echocardiogram was obtained it showed left ventricular systolic function normal EF between 55 and 60%. Cardiology indicated there was no further recommendations from a cardiac active. And the patient Outpatient stress test done. Patient additionally had a CAT scan of the chest rule out evidence of a pulmonary emboli this was negative. Pulmonology consultation was requested as well. Patient was seen by Dr. Stratton neurology. Patient continue to have mild symptoms of a possible MS exacerbation. Patient was given a short course of IV Solu-Medrol 60 mg IV piggyback every 8 hours. Patient was seen by physical therapy and was recommended that the patient would benefit from subacute rehab. Patient wanted to go home and stated that she has a who is with her 24 hours a day and would be willing to give her help and assistance. The patient's symptoms of the visual changes in the weakness did seem to improve on the IV Solu-Medrol. Neurology recommended the patient could be discharged and follow-up in the clinic in 2 weeks after discharge. The recommending tapering dose of prednisone 60 mg daily with weekly reduction of 10 mg over the next 6 weeks. Patient was discharged on the felt to be medically stable and appropriate to proceed Impression Present on admission chest pain suspect pleuritic Apparent history of COPD suspect asthma stable Lifelong nonsmoker Cough suspect due to tracheobronchitis Chronic pain syndrome narcotic dependency History of mitral valve repair Present on admission Hypernatremia History of a pulmonary emboli and DVT Elevated d-dimer with a computed tomography scan of the chest no evidence of a pulmonary emboli Present on admission blurred vision right eye with left lower extremity weakness suspect due to mild exacerbation of multiple sclerosis An acute exacerbation of multiple sclerosis History of a prior CVA without residual deficits Multiple sclerosis primary chronic progressive Anxiety depressive disorder nonspecified The above dictated assessment and findings were discussed with Dr. Montalvo. Impression and the plan of care have been dictated as directed. Deepthi Pierre nurse practitioner acting as a scribe for Dr. Montalvo Patient Condition at Discharge: Good Plan - Discharge Summary New Discharge Prescriptions: predniSONE 10 mg PO DAILY #142 tab Discharge Medication List Baclofen [Lioresal] 10 mg PO TID 04/22/14 [History] Cholecalciferol [Vitamin D3] 2,000 unit PO DAILY 04/22/14 [History] Cyclobenzaprine [Flexeril] 10 mg PO BID PRN 04/22/14 [History] Denosumab [Prolia] 60 mg SQ Q180D 04/22/14 [History] cycloSPORINE [Restasis] 1 drop BOTH EYES BID 04/22/14 [History] ALPRAZolam [Xanax] 0.5 mg PO BID 08/30/15 [History] Temazepam [Restoril] 30 mg PO HS PRN 08/30/15 [History] Ascorbic Acid [Vitamin C] 500 mg PO DAILY 10/19/15 [History] Cetirizine HCl [Zyrtec] 10 mg PO DAILY 10/19/15 [History] L.acidoph,Paracasei, B.lactis [Probiotic] 1 cap PO DAILY 10/19/15 [History] Magnesium Oxide [Mag-Ox] 250 mg PO DAILY 10/19/15 [History] Montelukast [Singulair] 10 mg PO DAILY 10/19/15 [History] Multivitamins, Thera [Multivitamin] 1 tab PO DAILY 10/19/15 [History] [place]ale-3 Fatty Acids [Blossvale-3] 1,000 mg PO DAILY 10/19/15 [History] Zinc 50 mg PO DAILY 10/19/15 [History] Aspirin EC [Ecotrin Low Dose] 81 mg PO DAILY 05/25/16 [History] Albuterol Nebulized [Ventolin Nebulized] 2.5 mg INHALATION RT-BID 09/01/16 [ History] Gabapentin [Neurontin] 400 mg PO TID 09/01/16 [History] HYDROcodone/APAP 7.5-325MG [Butler 7.5-325] 1 tab PO HS 09/01/16 [History] Ibuprofen [Motrin] 800 mg PO BID PRN 09/01/16 [History] Umeclidinium Hope [Incruse Ellipta] 1 puff INHALATION RT-DAILY 09/01/16 [ History] predniSONE 10 mg PO DAILY #142 tab 09/06/16 [Rx] Follow up Appointment(s)/Referral(s): Israel Montalvo MD [Primary Care Provider] - 1-2 days Amos Stratton MD [STAFF PHYSICIAN] - 2 Weeks Activity/Diet/Wound Care/Special Instructions: manager wireless would set up in-home physical therapy if the patient agrees Discharge Disposition: HOME SELF-CARE
[2016-09-06] MEDS: CHOLECALCIFEROL 1,000 UNIT TAB PO SCH (13:37)
[2016-09-06] MEDS: ZINC GLUCONATE 50 MG TAB PO SCH (13:37)
[2016-09-06] MEDS: MAGNESIUM OXIDE 250 MG TAB PO SCH (13:38)
[2016-09-06] MEDS: MULTIVITAMINS, THERA 1 EACH TAB PO SCH (13:38)
[2016-09-06] MEDS: ASCORBIC ACID 500 MG TAB PO SCH (13:38)
[2016-09-07 10:50] LABS: Mis test requested (Blood) Hypersens.Pneum.Eval
[2016-09-07 12:24] LABS: Alternaria alternata IgE <0.35 kU/L (<0.35); Cat Epith & Dander IgE <0.35 kU/L (<0.35); Cat Epith & Dander IgE Class CLASS 0; Common Ragweed IgE Class CLASS 0; Dermato. farinae IgE <0.35 kU/L (<0.35); Dermato. farinae IgE Class CLASS 0; English Plantain IgE Class CLASS 0; Meadow Grs (KY blue) IgE <0.35 kU/L (<0.35); Meadow Grs (KY blue) IgE Class CLASS 0; Oak IgE <0.35 kU/L (<0.35)
== END 2016-09-06 13:54 | disposition home or self-care (01) ==
LOC: EC 12:29 → 3OBS 16:11 → 5MS5E 09-03 11:50
PROVIDERS: ADMIT Family Medicine; ATTEND Family Medicine
DX: R07.81 Pleurodynia (principal); J44.9 Chronic obstructive pulmonary disease, unspecified; R05 Cough; G89.4 Chronic pain syndrome; E87.0 Hyperosmolality and hypernatremia; R79.89 Other specified abnormal findings of blood chemistry; H53.8 Other visual disturbances; G35 Multiple sclerosis; I12.9 Hypertensive chronic kidney disease with stage 1 through stage 4 chronic kidney disease, or unspecified chronic kidney disease; N18.9 Chronic kidney disease, unspecified; N17.9 Acute kidney failure, unspecified; F41.9 Anxiety disorder, unspecified; F32.9 Major depressive disorder, single episode, unspecified; K21.9 Gastro-esophageal reflux disease without esophagitis; R51 Headache; M19.90 Unspecified osteoarthritis, unspecified site; R19.7 Diarrhea, unspecified; N31.9 Neuromuscular dysfunction of bladder, unspecified; M54.9 Dorsalgia, unspecified; G89.29 Other chronic pain; Z79.899 Other long term (current) drug therapy; Z79.891 Long term (current) use of opiate analgesic; Z79.82 Long term (current) use of aspirin; Z88.5 Allergy status to narcotic agent; Z88.8 Allergy status to other drugs, medicaments and biological substances; Z88.1 Allergy status to other antibiotic agents; Z91.040 Latex allergy status; Z86.73 Personal history of transient ischemic attack (TIA), and cerebral infarction without residual deficits; Z86.718 Personal history of other venous thrombosis and embolism; Z86.14 Personal history of Methicillin resistant Staphylococcus aureus infection; Z96.643 Presence of artificial hip joint, bilateral; Z96.612 Presence of left artificial shoulder joint; Z80.3 Family history of malignant neoplasm of breast; Z83.79 Family history of other diseases of the digestive system; J45.901 Unspecified asthma with (acute) exacerbation
CPT/HCPCS: 99291; 96374; 96375 ×2; 96361 ×4; 36415; 94640 ×11; 94760 ×3; 93005; 93306; 97530; 97163; 85379; 86003; 80061; 80053 ×2; 86001; 82150; 82550 ×2; 82553 ×2; 83690; 83735; 84484 ×2; 85025; 85610; 85730; 86609; 86606; 82785; 71020; 74020; 70450; 71275; 78582; G0378 ×6; A9540; A9567; J2930 ×4; Q9967; J2175 ×4; J2405; J0131; J7512 ×2; 96376

== ENCOUNTER → 2016-11-09 | Outpatient (CLI) | payer MEDICARE ==
--- NOTE | 2016-11-09 15:55 | XR ---
Right foot HISTORY: Fifth metatarsal and digit pain 3 views of the right foot No comparisons Degenerative changes present within the first digit especially the metatarsophalangeal joint. Bone mi neralization and alignment are maintained within the right foot. Soft tissue swelling present at the metatarsophalangeal joint of the fifth digit laterally. Small ossific densities at the level of the d istal fifth metatarsal, proximal interphalangeal joint show nonaggressive appearance and measure only 1 to 2 mm in size. These are felt likely to be chronic and are well-corticated. No evident erosions. There is an oblique lucency through the proximal fifth metatarsal seen on the lateral view compatible with fracture. Lucency is vaguely seen in this distribution on the frontal view. IMPRESSION: Metatarsal fracture proximally of the fifth digit. Report relayed to the office of Dr. Kirt conklin at the time of interpretation of the exam on 09 November 2016.
--- NOTE | 2016-11-09 15:58 | XR ---
Left wrist HISTORY: Left wrist pain and edema 4 views of the left wrist compared to previous exam dated 14 March 2013 Bone mineralization is reduced, joint spaces and alignment are maintained. There is no fracture or di slocation. IMPRESSION: Osteopenia or osteoporosis is suggested.
== END | disposition home or self-care (01) ==
LOC: RADXRMAIN 09:44
PROVIDERS: ATTEND Internal Medicine Rheumatology
DX: S92.351A Displaced fracture of fifth metatarsal bone, right foot, initial encounter for closed fracture (principal)

== ENCOUNTER → 2017-01-20 | Outpatient (CLI) | payer MEDICARE ==
--- NOTE | 2017-01-20 15:55 | NM ---
EXAMINATION TYPE: NM parathyroid w/spect DATE OF EXAM: 01/20/2017 COMPARISON: NONE HISTORY: Abnormal labs TECHNIQUE: Following administration of 24.6 mCi Tc99m Sestamibi. Anterior projection images of the neck and ches t were obtained 10 minutes and 3 hours post injection. SPECT images of the neck and chest were obtai bud and reconstructed in three axes. FINDINGS: Thyroid tracer washout: Delayed images demonstrate near-complete tracer washout from the thyroid. Parathyroid uptake: None. The two-hour delayed images do not demonstrate any focal abnormal persisten t uptake in the region of the parathyroid glands to suggest parathyroid adenoma. Normal uptake: There is physiological tracer uptake in the myocardium, liver, salivary glands, and th yroid gland. IMPRESSION: Normal parathyroid imaging study. No evidence for mediastinal uptake to suggest mediastinal parathyro id adenoma
== END | disposition home or self-care (01) ==
LOC: RADNMMAIN 11:23
PROVIDERS: ATTEND Family Medicine
DX: R94.6 Abnormal results of thyroid function studies (principal)
CPT/HCPCS: 78071; A9500

== ENCOUNTER → 2017-02-06 | Outpatient (CLI) | payer MEDICARE ==
--- NOTE | 2017-02-06 12:53 | XR ---
Limited right foot HISTORY: Right foot pain 2 views of the right foot correlated to prior exam 11/09/2016 There is no interval change. No dislocation. Bone mineralization, joint spaces and alignment are stab le. There is a small plantar calcaneal spur. Proximal fifth metatarsal fracture changes are again not ed, there is likely associated fracture healing. IMPRESSION: Proximal fifth metatarsal fracture
== END ==
LOC: RADXRMAIN 11:31
PROVIDERS: ATTEND Family Medicine
DX: S92.351A Displaced fracture of fifth metatarsal bone, right foot, initial encounter for closed fracture (principal)

== ENCOUNTER → 2017-04-10 | Outpatient (CLI) | payer MEDICARE ==
[~2017-04-10] MED LIST: REGADENOSON 0.4 MG/5 ML SYRINGE IV ONE
--- NOTE | 2017-04-10 12:25 | NM ---
EXAMINATION TYPE: NM stress lexiscan cardiolite DATE OF EXAM: 04/10/2017 COMPARISON: NONE HISTORY: Abnormal EKG TECHNIQUE: After the intravenous administration of 10.2 mCi Tc 99m Sestamibi - Cardiolite resting SP ECT images acquired 45 minutes post injection. The patient received 0.4mg Lexiscan, 27.5 mCi Tc 99m Sestamibi - Stress images obtained [address] injection FINDINGS: Decreased reaffirms of uptake noted along the lateral wall left ventricle on stress images as compare d to rest images. Gated analysis shows normal wall motion with an estimated left ventricular ejection fraction of 78 %. IMPRESSION: Findings suggest pharmacologically induced left ventricular myocardial ischemia. Consider echocardiog raphic evaluation for elevated cardiac ejection fraction. Consider idiopathic hypertrophic subaortic stenosis. A Yellow message has been communicated to Israel Montalvo MD via the [employer] Critical Result system on 04/10/2017 12:22 PM, Message ID [id number].
--- NOTE | 2017-04-10 13:37 | EST ---
DATE OF SERVICE: 04/10/2017 TYPE OF REPORT: LEXISCAN CARDIOLITE STRESS TEST INDICATION: Abnormal EKG BASELINE HEART RATE: 73 BASELINE BLOOD PRESSURE: 104/55 MAXIMUM HEART RATE: 92 MAXIMUM BLOOD PRESSURE: 131/64 85% MPHR: 139 100% MPHR: 164 METS: - MAXIMUM STAGE REACHED: - TOTAL EXERCISE TIME: - Baseline EKG revealed a normal sinus rhythm with incomplete right bundle branch block, right pattern. With Lexiscan administration, patient had transient chest heaviness. Heart rate changed from 73 to 92 beats per minute. There were no ST-segment changes to indicated ischemia. Patient did not have any clearcut angina. Heart symptoms resolved really quickly. There was no arrhythmia. By EKG criteria, this was an unremarkable Lexiscan stress test. The nuclear scan results, which are more pertinent will be reported by the radiologist. ROBERT
== END | disposition home or self-care (01) ==
LOC: RADNMMAIN 08:57
PROVIDERS: ATTEND Family Medicine
DX: I45.19 Other right bundle-branch block (principal); I42.1 Obstructive hypertrophic cardiomyopathy
CPT/HCPCS: 93017; 78452; A9500; J2785

== ENCOUNTER 2017-04-14 06:27 | Day surgery (SDC) | payer MEDICARE ==
[2017-04-13 10:25] VITALS: BMI 20.5
[2017-04-14] MEDS ORDERED: ASPIRIN 325 MG TAB PO STA (06:30)
[2017-04-14] MEDS ORDERED: SODIUM CHLORIDE 0.9% 1,000 ML in EMPTY BAG 1 BAG IV ONE (06:30)
[2017-04-14] MEDS ORDERED: ALPRAZolam 0.25 MG TAB PO PRN (06:30)
[2017-04-14] MEDS ORDERED: ATORVASTATIN 80 MG TAB PO STA (06:30)
[2017-04-14] MEDS ORDERED: NITROGLYCERIN SL TABS 0.4 MG TAB SUBLINGUAL PRN (06:30)
[2017-04-14] MEDS ORDERED: ALPRAZolam 0.5 MG TAB PO PRN (06:30)
[2017-04-14] MEDS ORDERED: SODIUM CITRATE 10 GM/250 ML BAG IV STA (07:15)
[2017-04-14 07:22] LABS: Basophils % (A) 1 %; CH 30.6; CHCM 33.5; Eosinophils # (A) 0.1 k/uL (0-0.7); Eosinophils % (A) 2 %; HCT 44.2 % (34.0-46.0); HDW 2.29; Luc # (Auto) 0.16; Luc % (Auto) 3; Lymphocytes # (A) 2.1 k/uL (1.0-4.8); Lymphocytes % (A) 35 %; MCH 31.1 pg (25.0-35.0); MCV 91.6 fL (80.0-100.0); Mean Platelet Volume 7.7; Monocytes # (A) 0.5 k/uL (0-1.0); Monocytes % (A) 8 %; Neutrophils # (A) 3.2 k/uL (1.3-7.7); Neutrophils % (A) 52 %; RBC 4.82 m/uL (3.80-5.40); RDW 12.5 % (11.5-15.5); WBC 6.1 k/uL (3.8-10.6); WBC (Perox) 6.13
[2017-04-14] MEDS ORDERED: MIDAZOLAM 2 MG/2 ML VIAL IV ONE (07:38)
[2017-04-14] MEDS ORDERED: LIDOCAINE 2% INJ 20 MG/ML SQ ONE (07:39)
[2017-04-14] MEDS ORDERED: IOHEXOL 350 MG/ML 125ML BOTTLE INJ ONE (08:01)
[2017-04-14] MEDS ORDERED: RX INFO: IV CONTRAST WAS GIVEN 1 EACH MISC MISCELLANE PRN (08:02)
[2017-04-14] MEDS: SODIUM CHLORIDE 0.9% 1,000 ML IV SCH (08:05)
[2017-04-14] MEDS ORDERED: ONDANSETRON 4 MG/2 ML VIAL ONE (08:09)
[2017-04-14 08:17] LABS: Calcium 9.5 mg/dL (8.4-10.2); Potassium 4.4 mmol/L (3.5-5.1)
[2017-04-14] MEDS ORDERED: HYDROcodone/APAP 5-325MG 1 EACH TAB PO PRN (08:19)
[2017-04-14] MEDS ORDERED: ONDANSETRON 4 MG/2 ML VIAL IVP STA (08:20)
--- NOTE | 2017-04-14 08:23 | PCN ---
INDICATION: Abnormal preop cardiac evaluation, abnormal stress test. PROCEDURE: After obtaining informed consent the left heart catheterization and coronary angiogram were performed where the right femoral artery using standard Eitan catheters. The patient tolerated the procedure well without any obvious immediate complications. The femoral angiogram was performed and Angio-Seal was deployed for hemostasis. The patient received moderate conscious sedation. Total sedation time was 18 minutes. FINDINGS: 1. HEMODYNAMICS: Left ventricular end-diastolic pressure was 8 to 10 mmHg. There is no significant gradient across the aortic valve. 2. LEFT VENTRICULOGRAM: Left ventriculography is not performed. 3. ANGIOGRAPHIC DATA: Left Main Coronary Artery: The left main coronary is a short vessel and is free of stenosis. It divides into left anterior descending coronary artery and circumflex coronary artery. The LAD and its branches, circumflex coronary artery and its branches are free of significant stenosis. The left coronary artery was engaged using a size 3.5 Eitan catheter. Right coronary artery was a small, nondominant vessel and is free of significant stenosis. CONCLUSION: 1. Left dominant circulation. 2. Normal coronary arteries. 3. Normal left ventricular end-diastolic pressure. PLAN: I reviewed the angiographic data with the patient and told her that her stress test was a false positive stress test. I also told her that she is stable to proceed with the surgery next week. ROBERT
--- NOTE | 2017-04-14 08:26 | MISC ---
April 14, [address] Montalvo: I performed cardiac catheterization on Nelia Hdz. A detailed catheterization note is enclosed for your records. In brief, the cardiac catheterization reveals normal coronary arteries and the stress test is a false positive stress test. Patient is stable to undergo surgery under anesthesia. Thank you for giving us the privilege to participate in the care of this pleasant lady. ROBERT
[2017-04-14] MEDS ORDERED: CYCLOBENZAPRINE 10 MG TAB PO PRN (15:00)
[2017-04-14] MEDS ORDERED: TEMAZEPAM 30 MG CAP PO PRN (15:00)
[2017-04-14] MEDS: BACLOFEN 10 MG TAB PO SCH (16:37)
[2017-04-14] MEDS: GABAPENTIN 400 MG CAP PO SCH (16:37)
[2017-04-14] MEDS: ALBUTEROL NEBULIZED 2.5 MG/3 ML INHALATION SCH (19:31)
[2017-04-14] MEDS ORDERED: SYMBICORT 160-4.5 MCG INHALER INHALATION SCH (20:00)
[2017-04-14] MEDS: cycloSPORINE 0.05% OPHTH 0.4 ML DROPERETTE BOTH EYES SCH (21:42)
[2017-04-14] MEDS: FAMOTIDINE 20 MG TAB PO SCH (21:44)
[2017-04-15] MEDS: BACLOFEN 10 MG TAB PO SCH ×2 (04:23→09:01)
[2017-04-15] MEDS: GABAPENTIN 400 MG CAP PO SCH ×2 (04:24→09:06)
[2017-04-15] MEDS ORDERED: PANTOPRAZOLE 40 MG TABLET PO SCH (07:30)
[2017-04-15] MEDS ORDERED: TIOTROPIUM 18 MCG/PUFF INHALER INHALATION SCH (08:00)
[2017-04-15] MEDS: ALBUTEROL NEBULIZED 2.5 MG/3 ML INHALATION SCH (08:10)
[2017-04-15] MEDS ORDERED: CHOLECALCIFEROL 1,000 UNIT TAB PO SCH (09:00)
[2017-04-15] MEDS ORDERED: LACTOBACILLUS ACIDOPH & BULGAR 1 EACH PACKET PO SCH (09:00)
[2017-04-15] MEDS ORDERED: MONTELUKAST 10 MG TAB PO SCH (09:00)
[2017-04-15] MEDS ORDERED: ASPIRIN 81 MG CHEW PO SCH (09:00)
[2017-04-15] MEDS ORDERED: CALCIUM CARBONATE 500 MG CHEWABLE PO SCH (09:00)
[2017-04-15] MEDS ORDERED: LORATADINE 10 MG TAB PO SCH (09:00)
[2017-04-15] MEDS: cycloSPORINE 0.05% OPHTH 0.4 ML DROPERETTE BOTH EYES SCH (09:01)
[2017-04-15] MEDS: FAMOTIDINE 20 MG TAB PO SCH (09:10)
[2017-04-15] MEDS: SODIUM CHLORIDE 0.9% 1,000 ML IV SCH (09:13)
--- NOTE | 2017-04-15 11:02 | P.PN ---
Subjective Patient is doing well from a cardiac standpoint. She completed pain in the groin but there is no hematoma mild tenderness is noted which is expected and was explained to the patient. Vitals are stable she's afebrile 90F pulse 67 respirations 14 blood pressure 131/75 mmHg heart sounds are normal Coronary angiography was normal left ventricular end-diastolic pressures are normal Suggest Patient go home from a cardiac standpoint and follow up with Dr. Sarah within one week for a groin check Objective - Vital Signs Vital signs: Vital Signs Temp 98.0 F 04/15/17 08:00 Pulse 67 04/15/17 08:00 Resp 14 04/15/17 08:00 BP 131/75 04/15/17 08:00 Pulse Ox 100 04/15/17 08:00 Intake & Output 04/14/17 04/15/17 04/15/17 18:59 06:59 18:59 Intake Total 655 Balance 655 Weight 59.421 kg 59.421 kg Intake: IV 175 Sodium Chloride 0.9% 1, 75 000 ml @ 75 mls/hr IV . [id number] [facility] Rx#:[id number] Oral 480 Other: # Voids 2 - Labs CBC & Chem 7: 04/14/17 07:05 04/14/17 07:05
--- NOTE | 2017-04-15 11:58 | CONS ---
DATE OF CONSULTATION: 04/14/2017 CHIEF COMPLAINT: Right leg paresis. HISTORY OF PRESENT ILLNESS: A 60-year-old white female with multiple sclerosis , status post cardiac catheterization, which showed no significant findings. Ankle operation next week. She is refusing steroids as there is possible multiple sclerosis exacerbations triggered by cardiac catheterization of the right lower leg and inability to move it. Patient is refusing steroids. She states because she is going to have her ankle operated on next week and does not want to take steroids and she can get along without her leg movement between now and surgery. Allergies are to VANCOMYCIN, DOXYCYCLINE, HEPARIN, DILAUDID, LATEX, ZYVOX, MORPHINE, WARFARIN. FENTANYL. HOME MEDICINES: 1. Restoril. 2. Restasis. 3. Incruse. 4. Multivitamins. 5. Probiotics. 6. Neurontin. 7. Flexeril. 8. Singulair. 9. Zyrtec. 10. Lioresal. 11. Ecotrin. 12. Ventolin. 13. Xanax. 14. Prilosec. 15. Advair. 16. Tagamet. 17. Vitamin D. 18. Calcium carbonate. REVIEW OF SYSTEMS: Fourteen-point review of systems negative except for what is mentioned in HPI. PHYSICAL EXAM: Vital signs are stable, afebrile. CARDIOVASCULAR: S1 and S2. Lungs are clear. PSYCH: Anxious, nervous. NEUROLOGIC: Alert and oriented x3. GI: Soft, nontender. Right groin shows some mild bruising. VASCULAR: Normal dorsalis pedis, posterior tib and radial pulses. OPHTHALMOLOGIC: Pupils equal, round and reactive to light and accommodation. SKIN: Clean, dry and intact. ASSESSMENT: 1. Multiple sclerosis exacerbation, status post cardiac catheterization with right leg hemiparesis. 2. History of chronic obstructive pulmonary disease. 3. Allergic rhinitis. 4. Allergic asthma. 5. Chronic neuropathy. 6. Chronic dry eyes. PLAN: The patient will be started on her home medications. Will monitor her right leg overnight. Status post cardiac catheterization. Possible discharge home tomorrow. Today's date of service is 04/14/2017. ROBERT
[2017-04-15] MEDS ORDERED: MULTIVITAMINS, THERA 1 EACH TAB PO SCH (12:00)
[2017-04-15 12:06] VITALS: BP 112/62; RESP 16; TEMP 98.2
[2017-04-15 12:39] VITALS: PULSE 68
== END 2017-04-15 12:47 | disposition home or self-care (01) ==
LOC: CATHCVL 06:27 → 3OBS 07:56 → CATHCVL 04-15 12:47
PROVIDERS: ATTEND Internal Medicine Cardiovascular Disease
DX: R94.39 Abnormal result of other cardiovascular function study (principal); G35 Multiple sclerosis; G62.9 Polyneuropathy, unspecified; J44.9 Chronic obstructive pulmonary disease, unspecified; Z79.82 Long term (current) use of aspirin; Z79.899 Other long term (current) drug therapy; I73.9 Peripheral vascular disease, unspecified; Z88.1 Allergy status to other antibiotic agents; Z88.5 Allergy status to narcotic agent; I34.0 Nonrheumatic mitral (valve) insufficiency; Z91.040 Latex allergy status; H04.129 Dry eye syndrome of unspecified lacrimal gland
CPT/HCPCS: 94640 ×2; 93458; 80048; 85025; 99152; C1760; C1894; C1769; J2001; J2250; J2405; Q9967

== ENCOUNTER 2017-08-17 11:31 | Observation (INO) | payer MEDICARE ==
[2017-08-17] MEDS ORDERED: MAGNESIUM CITRATE 296 ML BOTTLE PO ONE (14:42)
--- NOTE | 2017-08-17 14:42 | CT ---
EXAMINATION TYPE: CT abdomen pelvis wo con DATE OF EXAM: 08/17/2017 HISTORY: Abd pain and constipation. CT DLP: 846 mGycm. Automated Exposure Control for Dose Reduction was Utilized. TECHNIQUE: CT scan of the abdomen and pelvis is performed without oral or IV contrast. COMPARISON: CT abdomen March 21, 2015 FINDINGS: Within the limitations of a non-contrast study, the following observations are made. LUNG BASES: Motion artifact degradation is present. There is left basilar linear scarring and/or atel ectasis redemonstrated. There is calcification at level of mitral valve redemonstrated. There is calc ification at level of right coronary artery felt redemonstrated. Dominant right coronary artery is no susana. There is partial visualization of sternal wires. LIVER/GB: Cholecystectomy clips are redemonstrated. Liver remains somewhat small in size is not signi ficantly changed from prior. Slightly prominent caudate lobe is redemonstrated. PANCREAS: There is some mild fat replaced atrophy of pancreas there are head and proximal body promin ent versus prior SPLEEN: No significant abnormality is seen. ADRENALS: No significant abnormality is seen. KIDNEYS: No renal stones or hydronephrosis is present bilaterally. Suboptimal evaluation of bladder i s noted due to streak artifact. Visualized portions are unremarkable. BOWEL: Evaluation bowel is suboptimal secondary to lack of enteric contrast. There are surgical sutur es prior bowel surgery and fecal prominent: In the upper abdomen just right of midline similar to vivek or. There is no suspicious small bowel dilatation. There is redundant sigmoid colon. There is overall prominence of fecal material throughout the colon. GENITAL ORGANS: Suboptimal evaluation due to streak artifact. LYMPH NODES: No greater than 1cm abdominal or pelvic lymph nodes are appreciated. OSSEOUS STRUCTURES: Metallic hardware from bilateral hip arthroplasty causes streak artifact limiting evaluation of pelvic structures. There is multilevel vertebroplasty at T11 and T12 level redemonstra susana. Superior and inferior to this there is redemonstration of hyperdense material not as densely as cement could reflect additional areas of vertebroplasty or prior surgery. No significant change from prior. OTHER: No significant additional abnormality is seen. IMPRESSION: Overall nonspecific but felt to be nonobstructive bowel gas pattern. Persistent mild to m oderate diffuse colonic fecal stasis with more prominent moderate to severe fecal stasis at site of s urgery. Findings are slightly improved versus prior CT.
--- NOTE | 2017-08-17 14:53 | P.GSCN ---
History of Present Illness Consult date: 08/17/17 Reason for Consult: Abdominal pain History of present illness: Patient has a history of chronic constipation. This has been increasing over the last 2 months. She has tried MiraLAX daily with no results. Last bowel movement 2 days ago. That was within enema. She feels bloated. Her appetite is diminished. Occasional small volume emesis. Crampy abdominal pain. CAT scan done today shows constipation although official report pending. Last colonoscopy 3 years ago. She had a spontaneous perforation of the mid transverse colon several years ago that required segmental resection. She had a subsequent repair of an incisional hernia following that. The patient has been on steroids in the past although not recently for her advanced multiple sclerosis. Denies rectal bleeding or melena. Labs pending. 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 History of Any Multi-Drug Resistant Organisms: MRSA Year Discovered:: 05/2012 MDRO Source:: abd. incision Past Surgical History: Appendectomy, Back Surgery, Bowel Resection, Cardiac Valve Replacement, Cholecystectomy, Heart Catheterization, Hernia Repair, Hysterectomy, Joint Replacement, Orthopedic Surgery Additional Past Surgical History / Comment(s): R foot surgery x2, MVR, Colectomy , Colostomy with later Reversal, colonoscopies, several mediports-last removal 8/24/16, Bilateral Hips Replaced, Left Shoulder Replaced, Bilateral Cataracts, Incisional Hernia Repair, occipital and trapezius nerve blocks. Past Anesthesia/Blood Transfusion Reactions: Motion Sickness Additional Past Anesthesia/Blood Transfusion Reaction / Comm: Had seizure years ago post anesthesia that was felt to be do to latex allergy. Smoking Status: Never smoker - Past Family History Father Family Medical History: Liver Disease Additional Family Medical History / Comment(s): Father of cirrhosis of the liver. He was an alcoholic. Sister(s) Family Medical History: Deep Vein Thrombosis (DVT) Mother Family Medical History: Cancer Additional Family Medical History / Comment(s): Mother of breast cancer at te age of 55 yrs. Medications and Allergies Home Medications Medication Instructions Recorded Confirmed Type Baclofen [Lioresal] 10 mg PO BID@0800,1400 04/22/14 08/17/17 History Cyclobenzaprine [Flexeril] 10 mg PO HS 04/22/14 08/17/17 History cycloSPORINE [Restasis] 1 drop BOTH EYES BID 04/22/14 08/17/17 History ALPRAZolam [Xanax] 1 mg PO BID 08/30/15 08/17/17 History Temazepam [Restoril] 30 mg PO HS 08/30/15 08/17/17 History Cetirizine HCl [Zyrtec] 10 mg PO HS 10/19/15 08/17/17 History Montelukast [Singulair] 10 mg PO HS 10/19/15 08/17/17 History Aspirin EC [Ecotrin Low Dose] 81 mg PO DAILY 05/25/16 08/17/17 History Albuterol Nebulized [Ventolin 2.5 mg INHALATION RT-BID 09/01/16 08/17/17 History Nebulized] Gabapentin [Neurontin] 400 mg PO TID 09/01/16 08/17/17 History Umeclidinium [place] [Incruse 1 puff INHALATION RT-HS PRN 09/01/16 08/17/17 History Ellipta] Cimetidine [Tagamet] 300 mg PO BID 04/13/17 08/17/17 History Fluticasone/Salmeterol [Advair 1 inhalation PO RT-BID 04/13/17 08/17/17 History 500-50 Diskus] Albuterol Inhaler [Ventolin Hfa 1 - 2 puff INHALATION RT-Q6H PRN 08/17/17 History Inhaler] Calcium Carbonate/Vitamin D3 1 tab PO DAILY 08/17/17 08/17/17 History [Calcium 600-Vit D3 400 Caplet] Vortioxetine Hydrobromide 10 mg PO DAILY 08/17/17 08/17/17 History [Trintellix] Allergies Allergy/AdvReac Type Severity Reaction Status Date / Time vancomycin Allergy Severe Anaphylaxis Verified 08/17/17 12:43 doxycycline Allergy Anaphylaxis Verified 08/17/17 12:43 heparin Allergy Anaphylaxis Verified 08/17/17 12:43 hydromorphone HCl Allergy Anaphylaxis Verified 08/17/17 12:43 [From Dilaudid] Latex, Natural Rubber Allergy Rash/Hives Verified 08/17/17 12:43 linezolid [From Zyvox] Allergy Rash/Hives, Verified 08/17/17 12:43 itching morphine Allergy Anaphylaxis Verified 08/17/17 12:43 warfarin sodium Allergy Rash/Hives Verified 08/17/17 12:43 [From Coumadin] fentanyl AdvReac Nausea & Verified 08/17/17 12:43 Vomiting Surgical - Exam Vital Signs Temp Pulse Resp BP Pulse Ox 97.8 F 95 18 120/72 96 08/17/17 12:40 08/17/17 12:40 08/17/17 12:40 08/17/17 12:40 08/17/17 12:40 Physical exam: General: Well-developed, well-nourished HEENT: Normocephalic, sclerae nonicteric Abdomen: Minimal diffuse tenderness, nondistended Extremities: No edema Neuro: Alert and oriented Assessment and Plan (1) Generalized abdominal pain Narrative/Plan: CAT scan suggests constipation is the source of her abdominal pain. We'll provide lactulose and magnesium citrate. Soapsuds enemas. Advise short-term outpatient colonoscopy. Resume diet. Hopefully discharge tomorrow if the patient is able to improve bowel function. Current Visit: Yes Status: Acute Code(s): R10.84 - GENERALIZED ABDOMINAL PAIN SNOMED Code(s): 139110191
[2017-08-17 15:20] VITALS: BMI 19.8
[2017-08-17] MEDS: SODIUM CHLORIDE 0.9% 1,000 ML IV SCH (15:57)
[2017-08-17] MEDS: ONDANSETRON 4 MG/2 ML VIAL IVP PRN (17:12)
[2017-08-17] MEDS: LACTULOSE 20 GM/30 ML CUP PO SCH ×2 (17:13→22:00)
[2017-08-17] MEDS: HYDROcodone/APAP 5-325MG 1 EACH TAB PO PRN (19:27)
[2017-08-17] MEDS: ALBUTEROL NEBULIZED 2.5 MG/3 ML INHALATION SCH (20:43)
[2017-08-17] MEDS: SYMBICORT 160-4.5 MCG INHALER INHALATION SCH (20:57)
[2017-08-17] MEDS: LORATADINE 10 MG TAB PO SCH (21:14)
[2017-08-17] MEDS: GABAPENTIN 400 MG CAP PO SCH (21:14)
[2017-08-17] MEDS: cycloSPORINE 0.05% OPHTH 0.4 ML DROPERETTE BOTH EYES SCH (21:14)
[2017-08-17] MEDS: MONTELUKAST 10 MG TAB PO SCH (21:14)
[2017-08-17] MEDS: FAMOTIDINE 20 MG TAB PO SCH (21:14)
[2017-08-17] MEDS: TEMAZEPAM 30 MG CAP PO SCH (22:54)
[2017-08-17] MEDS: ALPRAZolam 0.5 MG TAB PO SCH (22:54)
[2017-08-18] MEDS: HYDROcodone/APAP 5-325MG 1 EACH TAB PO PRN (00:52)
[2017-08-18] MEDS: SYMBICORT 160-4.5 MCG INHALER INHALATION SCH (07:14)
[2017-08-18] MEDS: IPRATROPIUM 0.5 MG/2.5 ML NEBU INHALATION PRN (07:15)
[2017-08-18] MEDS: ALBUTEROL NEBULIZED 2.5 MG/3 ML INHALATION SCH (07:15)
[2017-08-18] MEDS: cycloSPORINE 0.05% OPHTH 0.4 ML DROPERETTE BOTH EYES SCH (07:37)
[2017-08-18] MEDS: LACTULOSE 20 GM/30 ML CUP PO SCH (07:37)
[2017-08-18] MEDS: ALPRAZolam 0.5 MG TAB PO SCH (07:38)
[2017-08-18] MEDS: CALCIUM CARB-VIT D 500MG-200UN 1 EACH TAB PO SCH (07:38)
[2017-08-18] MEDS: ASPIRIN 81 MG PO SCH (07:38)
[2017-08-18] MEDS: BACLOFEN 10 MG TAB PO SCH (07:38)
[2017-08-18] MEDS: FAMOTIDINE 20 MG TAB PO SCH (07:38)
[2017-08-18] MEDS: GABAPENTIN 400 MG CAP PO SCH (07:39)
[2017-08-18 07:44] LABS: Basophils # (A) 0.1 k/uL (0-0.2); Basophils % (A) 1 %; Eosinophils # (A) 0.1 k/uL (0-0.7); Eosinophils % (A) 2 %; HCT 42.1 % (34.0-46.0); HGB 13.2 gm/dL (11.4-16.0); Lymphocytes # (A) 1.8 k/uL (1.0-4.8); Lymphocytes % (A) 35 %; MCH 30.2 pg (25.0-35.0); MCHC 31.3 g/dL (31.0-37.0); MCV 96.6 fL (80.0-100.0); Mean Platelet Volume 8.3; Monocytes # (A) 0.5 k/uL (0-1.0); Monocytes % (A) 10 %; Neutrophils # (A) 2.6 k/uL (1.3-7.7); Neutrophils % (A) 51 %; Platelet Count 225 k/uL (150-450); RBC 4.36 m/uL (3.80-5.40); RDW 12.8 % (11.5-15.5); WBC 5.2 k/uL (3.8-10.6)
[2017-08-18 08:10] LABS: ALT 79 U/L (9-52); AST 97 U/L (14-36); Albumin 3.6 g/dL (3.5-5.0); Alkaline Phosphatase 74 U/L (38-126); Anion Gap 7 mmol/L; Blood Urea Nitrogen 10 mg/dL (7-17); Calcium 9.4 mg/dL (8.4-10.2); Carbon Dioxide 32 mmol/L (22-30); Chloride 104 mmol/L (98-107); Glucose 84 mg/dL (74-99); Potassium 4.7 mmol/L (3.5-5.1); Sodium 143 mmol/L (137-145); Total Bilirubin 0.4 mg/dL (0.2-1.3); Total Protein 6.3 g/dL (6.3-8.2)
[2017-08-18] MEDS ORDERED: GABAPENTIN 400 MG CAP ONE (16:00)
[2017-08-18] MEDS ORDERED: MONTELUKAST 10 MG TAB ONE (16:00)
[2017-08-18] MEDS ORDERED: LACTULOSE 20 GM/30 ML CUP ONE (16:00)
[2017-08-18] MEDS ORDERED: ALBUTEROL NEBULIZED 2.5 MG/3 ML INHALATION ONE (16:00)
[2017-08-18] MEDS ORDERED: cycloSPORINE 0.05% OPHTH 0.4 ML DROPERETTE ONE (16:00)
[2017-08-18] MEDS ORDERED: SYMBICORT 160-4.5 MCG INHALER INHALATION ONE (16:00)
[2017-08-18] MEDS ORDERED: LORATADINE 10 MG TAB ONE (16:00)
[2017-08-18] MEDS ORDERED: FAMOTIDINE 20 MG TAB ONE (16:00)
[2017-08-18] MEDS ORDERED: BACLOFEN 10 MG TAB ONE (16:00)
[2017-08-18] MEDS ORDERED: KETOROLAC 30 MG/ML 1 ML VIAL ONE (17:09)
--- NOTE | 2017-08-18 22:55 | PN ---
PROGRESS NOTE DATE OF SERVICE: 08/18/2017. HISTORY: Ms. Hdz is resting comfortably in bed. She states she has had some epigastric pain. She has a regular tray by her bedside. PHYSICAL EXAM: On exam, her vitals are stable. Abdomen is soft. There is no significant pain. PLAN: Patient states she has chronic constipation. I have recommended increasing her oral fluid intake. The patient will follow with Dr. Grimm as an outpatient. MMODL / IJN: [id number] /
[2017-08-19] MEDS: SYMBICORT 160-4.5 MCG INHALER INHALATION SCH ×3 (01:39→19:06)
[2017-08-19] MEDS: ALBUTEROL NEBULIZED 2.5 MG/3 ML INHALATION SCH ×3 (01:39→19:07)
[2017-08-19] MEDS: HYDROcodone/APAP 5-325MG 1 EACH TAB PO PRN ×3 (02:11→20:41)
[2017-08-19] MEDS: SODIUM CHLORIDE 0.9% 1,000 ML IV SCH ×2 (06:25→12:15)
[2017-08-19] MEDS: FAMOTIDINE 20 MG TAB PO SCH ×3 (07:41→22:55)
[2017-08-19] MEDS: cycloSPORINE 0.05% OPHTH 0.4 ML DROPERETTE BOTH EYES SCH ×3 (07:41→22:55)
[2017-08-19] MEDS: GABAPENTIN 400 MG CAP PO SCH ×4 (07:42→22:55)
[2017-08-19] MEDS: ALPRAZolam 0.5 MG TAB PO SCH ×3 (07:42→22:59)
[2017-08-19] MEDS: LACTULOSE 20 GM/30 ML CUP PO SCH ×5 (07:42→22:54)
[2017-08-19] MEDS: BACLOFEN 10 MG TAB PO SCH ×3 (07:43→13:28)
[2017-08-19] MEDS: ONDANSETRON 4 MG/2 ML VIAL IVP PRN ×2 (07:49→20:34)
[2017-08-19] MEDS: ASPIRIN 81 MG PO SCH (07:50)
[2017-08-19] MEDS: CALCIUM CARB-VIT D 500MG-200UN 1 EACH TAB PO SCH (07:51)
[2017-08-19] MEDS: IPRATROPIUM 0.5 MG/2.5 ML NEBU INHALATION PRN (07:53)
[2017-08-19] MEDS ORDERED: MAGNESIUM CITRATE 296 ML BOTTLE PO ONE (08:54)
--- NOTE | 2017-08-19 11:07 | P.PN ---
Subjective Progress Note Date: 08/19/17 Patient seen and examined at bedside. Complains of mild abdominal pain. States she has had 1 bowel movement since the enema was given. She states she still feels constipated. Objective - Vital Signs Vital signs: Vital Signs Temp 97.8 F 08/19/17 07:00 Pulse 79 08/19/17 08:09 Resp 16 08/19/17 07:00 BP 135/74 08/19/17 07:00 Pulse Ox 99 08/19/17 07:00 Intake & Output 08/18/17 08/19/17 08/19/17 18:59 06:59 18:59 Output Total 1513 Balance -1513 Output: Urine 800 Straight 800 Post Void Residual 713 Other: Voiding Method Toilet Toilet Bedside Commode Bedside Commode # Voids 1 - Constitutional General appearance: Present: cooperative, no acute distress - EENT Eyes: Present: EOMI, PERRLA ENT: Present: hearing grossly normal - Neck Neck: Present: normal ROM - Respiratory Details: No difficulty with respiration - Gastrointestinal Gastrointestinal Comment(s): Soft, nontender, nondistended, no rebound, no guarding - Psychiatric Psychiatric: Present: A&O x's 3, appropriate affect, intact judgment & insight - Labs CBC & Chem 7: 08/18/17 06:58 08/18/17 06:58 Assessment and Plan Plan: 57-year-old female with constipation Continue bowel regimen Stable for discharge, when having bowel movements
[2017-08-19] MEDS ORDERED: KETOROLAC 30 MG/ML 1 ML VIAL IVP ONE (11:40)
[2017-08-19] MEDS: TEMAZEPAM 30 MG CAP PO SCH ×2 (12:14→22:58)
[2017-08-19] MEDS: Vortioxetine Hydrobromide [Trintellix] 10 MG PO SCH ×2 (12:14→12:17)
[2017-08-19] MEDS: LORATADINE 10 MG TAB PO SCH ×2 (12:14→22:55)
[2017-08-19] MEDS: MONTELUKAST 10 MG TAB PO SCH ×2 (12:14→22:55)
[2017-08-19] MEDS ORDERED: MINERAL OIL 133 ML ENEMA RECTAL STA (15:20)
[2017-08-19] MEDS ORDERED: BISACODYL 10 MG SUPP RECTAL STA (15:22)
--- NOTE | 2017-08-19 16:21 | PN ---
PROGRESS NOTE SUBJECTIVE: This is a 57-year-old white female admitted with abdominal pain, ileus and constipation. Cardiovascular S1, S2. Lungs are clear. GI is soft. Some mild tenderness epigastric. No guarding. ASSESSMENT: Chronic constipation, abdominal pain due to constipation, possible ileus. The patient states she has increasing abdominal pain, order Mag sulfate infusion today. Possible discharge home in the next 24-48 hours if cleared by surgery for discharge. MMODL / IJN: [id number] /
[2017-08-20] MEDS: SODIUM CHLORIDE 0.9% 1,000 ML IV SCH (02:30)
[2017-08-20 07:54] VITALS: BP 122/85; PULSE 90; RESP 18; TEMP 97.7
[2017-08-20] MEDS: ONDANSETRON 4 MG/2 ML VIAL IVP PRN (08:11)
[2017-08-20] MEDS: BACLOFEN 10 MG TAB PO SCH (08:15)
[2017-08-20] MEDS: LACTULOSE 20 GM/30 ML CUP PO SCH (08:15)
[2017-08-20] MEDS: ASPIRIN 81 MG PO SCH (08:18)
[2017-08-20] MEDS: CALCIUM CARB-VIT D 500MG-200UN 1 EACH TAB PO SCH (08:18)
[2017-08-20] MEDS: cycloSPORINE 0.05% OPHTH 0.4 ML DROPERETTE BOTH EYES SCH (08:18)
[2017-08-20] MEDS: FAMOTIDINE 20 MG TAB PO SCH (08:19)
[2017-08-20] MEDS: GABAPENTIN 400 MG CAP PO SCH (08:19)
[2017-08-20] MEDS: SYMBICORT 160-4.5 MCG INHALER INHALATION SCH (08:22)
[2017-08-20] MEDS: ALBUTEROL NEBULIZED 2.5 MG/3 ML INHALATION SCH (08:22)
[2017-08-20] MEDS: ALPRAZolam 0.5 MG TAB PO SCH (08:24)
[2017-08-20] MEDS: Vortioxetine Hydrobromide [Trintellix] 10 MG PO SCH (08:26)
--- NOTE | 2017-09-17 16:17 | HP ---
HISTORY AND PHYSICAL CHIEF COMPLAINT: [age] -year-old with history of acute abdominal pain and chronic constipation, multiple [id number]-kuivgde medications have not worked up. Last bowel movement was 2 days ago. She felt bloated, appetite was diminished. CT scan on admission shows stenosis, repair of incisional hernia at that point with possible stenosis over an area of the incision. REVIEW OF SYSTEMS: Fourteen point review of systems negative except for mentioned in HPI. PAST MEDICAL HISTORY: COPD, CVA, TIA, DVT, GERD, multiple sclerosis, osteoarthritis, history of transverse bowel perforation, recent sinus infection, UTIs, constipation, occipital neuritis, osteoporosis, thoracic fractures, peripheral neuropathy, gout, DVT in her left leg, subclavian, heart endocarditis, chronic back pain. Allergies sinus problems, bronchitis, pneumonia, history of MRSA. SURGICAL HISTORY: Appendectomy, back surgery, bowel surgery, cardiac valve replacement, cholecystectomy, heart catheterization, hernia repair, hysterectomy, joint replacement orthopedic surgery, right foot surgery x2, colonoscopy several Mediports, bilateral hips replaced, left shoulder replaced, bilateral cataracts, incisional hernia repair, occipital and trapezius nerve blocks, history of motion sickness. FAMILY HISTORY: Father with liver disease, of cirrhosis. Sister DVT. Mother with cancer of the breast, age 55. MEDICATIONS: Lioresal 10 mg b.i.d., Flexeril 10 mg daily, Restasis 1 drop both eyes b.i.d., Xanax 1 mg b.i.d. Restoril 30 q.h.s., Zyrtec 10 mg daily, singular 10 mg daily, aspirin 81 mg daily, Ventolin HFA p.r.n., Neurontin 400 t.i.d., Tagamet 300 b.i.d., Ellipta 1 puff daily, albuterol inhaler p.r.n., Trintellix 10 mg daily, calcium carbonate vitamin D3 daily. ALLERGIES: VANCOMYCIN, DOXYCYCLINE, HEPARIN, DILAUDID, NATURAL RUBBER, ZYVOX, MORPHINE, WARFARIN, FENTANYL. PHYSICAL EXAMINATION: Vital signs: Temp 97.8, respiratory 16 to 18, pulse 50s to 80s, 75, blood pressure 120s over 70s, O2 96% on room air cardiovascular S1, S2. Psych: Anxious, nervous. Neuro: Alert and oriented x3. GI: Soft, nontender, increased bowel sounds. Hematology negative Homans. Vascular normal dorsalis pedis and posterior radial pulse. Ophthalmologic: Pupils equal, round, reactive to light. ASSESSMENT: Generalized abdominal pain, chronic constipation, possible pre-surgical stenosis stenotic area, dehydration. IV hydration will be given. Surgical consult will be given. Please see further orders in chart. MMODL / IJN: [id number] /
--- NOTE | 2017-09-17 16:44 | DS ---
DISCHARGE SUMMARY DISCHARGE MEDICATION: Restasis 1 drop both eyes b.i.d., Flexeril 10 mg q.h.s., Lopressor 10 mg b.i.d., Restoril 30 mg daily, Xanax 1 mg b.i.d., Zyrtec 10 mg daily, singular 10 mg daily, Ecotrin 81 mg daily, Ventolin nebulizer b.i.d., gabapentin 400 t.i.d., 1 puff daily, Advair 500/50 1 puff b.i.d., Tagamet 300 b.i.d., multivitamin daily, Ventolin HFA inhaler 2 puffs q.4 hours p.r.n., Trintellix 10 mg daily. CONDITION: Stable. PROGNOSIS: Guarded. Ambulate as tolerated. HOSPITAL COURSE OF EVENTS: This is a white female who came in with abdominal pain, chronic constipation, acute possible stenotic area over prior surgical incision area. Bowel regimen was given to her. She has improved with IV fluids, multiple treatments for constipation. She will followup as an outpatient. MMPADMINIL / JUSTINEN: [id number] /
== END 2017-08-20 09:30 | disposition home or self-care (01) ==
LOC: 5MS5E 11:47
PROVIDERS: ADMIT Family Medicine; ATTEND Family Medicine
DX: R10.13 Epigastric pain (principal); K59.09 Other constipation; R10.84 Generalized abdominal pain; E86.0 Dehydration; R10.9 Unspecified abdominal pain; G35 Multiple sclerosis; J44.9 Chronic obstructive pulmonary disease, unspecified; K21.9 Gastro-esophageal reflux disease without esophagitis; M19.90 Unspecified osteoarthritis, unspecified site; N31.9 Neuromuscular dysfunction of bladder, unspecified; G62.9 Polyneuropathy, unspecified; M81.0 Age-related osteoporosis without current pathological fracture; M10.9 Gout, unspecified; M54.9 Dorsalgia, unspecified; G89.29 Other chronic pain; Z80.3 Family history of malignant neoplasm of breast; Z79.899 Other long term (current) drug therapy; Z79.82 Long term (current) use of aspirin; Z79.51 Long term (current) use of inhaled steroids; Z88.5 Allergy status to narcotic agent; Z88.8 Allergy status to other drugs, medicaments and biological substances; Z88.1 Allergy status to other antibiotic agents; Z91.040 Latex allergy status; Z90.49 Acquired absence of other specified parts of digestive tract; Z86.73 Personal history of transient ischemic attack (TIA), and cerebral infarction without residual deficits; Z86.718 Personal history of other venous thrombosis and embolism; Z87.440 Personal history of urinary (tract) infections; Z87.01 Personal history of pneumonia (recurrent); Z86.14 Personal history of Methicillin resistant Staphylococcus aureus infection; Z95.2 Presence of prosthetic heart valve; Z84.89 Family history of other specified conditions
CPT/HCPCS: 96376 ×2; 96374; 96375; 94640 ×6; 80053; 83690; 85025; 74176; G0378 ×4; G0379; J2405 ×3; J1885

== ENCOUNTER → 2017-09-15 | Outpatient (CLI) | payer MEDICARE ==
--- NOTE | 2017-09-15 10:31 | FL ---
EXAMINATION: Upper GI with small bowel follow through DATE: 09/15/2017 History: 57-year-old female with 6 months of constipation, nausea and vomiting, and 10 pound weight l oss. Patient with repair of a perforated transverse colon 7 years ago. COMPARISON: CT 08/17/2017 Total Fluoroscopy Time: 1.47 minutes. Total images: 57 FINDINGS: Fundraising Director image shows nonobstructive bowel gas pattern. Moderate stool in the right transverse colon. Trinidad gical material in this area as well as in the bilateral pelvis as well as cholecystectomy clips. Multilevel vertebroplasty changes as well as bilateral hip replacements. The esophagus has a normal course, caliber and mucosa. Mild tertiary peristaltic contractions are not ed. There is a tiny sliding hiatal hernia and mild spontaneous gastroesophageal reflux seen. The stomach and duodenum are free of any persistent filling defect and demonstrate a normal mucosal p attern. Following administration of barium, serial films were carried out to 70 minutes. Barium is seen to re ach the colon. Loops of jejunum and ileum are compressed and examined under fluoroscopy. The small bowel loops have a normal-caliber. Mucosal pattern is within normal limits. No intrinsic or extrinsic process is suspected. IMPRESSION: 1. Tiny hiatal hernia, small amount of gastroesophageal reflux seen, and very mild tertiary peristalt ic contractions in the esophagus. 2. Otherwise, unremarkable upper GI and small bowel follow-through. 3. Normal small bowel transit time of 70 minutes.
== END | disposition home or self-care (01) ==
LOC: RADFLMAIN 07:41
PROVIDERS: ATTEND Family Medicine
DX: K21.9 Gastro-esophageal reflux disease without esophagitis (principal); K44.9 Diaphragmatic hernia without obstruction or gangrene
CPT/HCPCS: 74249

== ENCOUNTER → 2017-10-04 | Outpatient (CLI) | payer MEDICARE ==
--- NOTE | 2017-10-04 14:59 | BD ---
EXAMINATION TYPE: MG DEXA appendicular skeleton. DATE OF EXAM: 10/04/2017 COMPARISON: 2014 CLINICAL HISTORY: osteoporosis Height: 5'6 Weight: 122 FRAX RISK QUESTIONS: Alcohol (3 or more units per day): no Family History (Parent hip fracture): no Glucocorticoids (More than 3mos): yes (Ex: prednisone, prednisolone, methylprednisolone, dexamethasone, and hydrocortisone). History of Fracture in Adulthood: yes Secondary Osteoporosis: 1. Type 1 Diabetes: no 2. Hyperthyroidism: no 3. Menopause before 45: no 4. Malnutrition: no 5. Chronic liver disease: no Rheumatoid Arthritis: no Current Tobacco Use: no RISK FACTORS HISTORY OF: Surgery to Spine/Hip(right/left)/: lumbar spine , antonio total hips When: 10 years ago Family History of Osteoporosis: Active: Postmenopausal woman: Lost more than 2 inches in height since high school: Frequent falls: Poor Health: MEDICATIONS: Additional Medications: vitamin D , calcium, neurotin, muscle spasm , flexor, Advair singulair , sle eping , xanax Additional History: pt has MS EXAM MEASUREMENTS: Bone mineral densitometry was performed using the [employer] Properties System. Bone mineral density about the R Wrist (g/cm2): 0.303 T Score values are as follows: -----Dist. R+U: -3.1 -----Prox. R+U: 0.7 -----Radius total: -1.1 Bone mineral density has: Increased 2.3% since study of: 08/04/2015 IMPRESSION: Osteopenia (T Score between -2.5 and -1) as noted by T score values with regards to the radius total. There is slightly increased risk of fracture and the patient may be considered for treatment. Re-Screen 2-5 years. NOTE: T-SCORE=SD OF THE YOUNG ADULT MEAN.
== END | disposition home or self-care (01) ==
LOC: RADBDWWP 13:11
PROVIDERS: ATTEND Internal Medicine Rheumatology
DX: M85.839 Other specified disorders of bone density and structure, unspecified forearm (principal)
CPT/HCPCS: 77081

== ENCOUNTER → 2018-12-12 | Outpatient (CLI) | payer MEDICARE ==
--- NOTE | 2018-12-12 12:24 | XR ---
EXAMINATION TYPE: XR Hip Complete LT DATE OF EXAM: 12/12/2018 COMPARISON: NONE HISTORY: Pain TECHNIQUE: 2 views submitted FINDINGS: Postsurgical changes are noted. Chronic appearing deformity of the inferior pubic ramus. Diffuse oste openia. Calcification the pelvis is stable from prior exam and likely vascular. Metallic density in t he left hemipelvis also stable uncertain etiology. Correlate for previous surgery. IMPRESSION: 1. Postsurgical changes. 2. No definite acute fracture. Chronic appearing deformity of the left inferior pubic ramus.
--- NOTE | 2018-12-12 12:27 | XR ---
EXAMINATION TYPE: XR knee complete LT DATE OF EXAM: 12/12/2018 COMPARISON: NONE HISTORY: Pain TECHNIQUE: Four views are submitted. FINDINGS: Diffuse osteopenia noted and there is narrowing of the medial compartment the knee joint and patellof emoral joint. There is sclerosis involving the medial margin of the articular medial femur. IMPRESSION: 1. Sclerosis involving the medial margin of the medial femoral condyle. This can be associated with a n osteochondral injury or osteochondritis. MRI correlation suggested.
--- NOTE | 2018-12-12 12:30 | XR ---
EXAMINATION TYPE: XR tibia fibula LT DATE OF EXAM: 12/12/2018 COMPARISON: NONE HISTORY: Pain TECHNIQUE: Two views are submitted. FINDINGS: The osseous structures are intact. The joint spaces are preserved. Sclerosis involving the medial f emoral condyle noted. Diffuse osteopenia. IMPRESSION: 1. Sclerosis involving the medial femoral condyle can be associated with osteochondral injury correla te with MRI.
== END | disposition home or self-care (01) ==
LOC: RADXRMAIN 11:53
PROVIDERS: ATTEND Family Medicine
DX: M95.5 Acquired deformity of pelvis (principal); M25.862 Other specified joint disorders, left knee; Z98.890 Other specified postprocedural states
CPT/HCPCS: 73502

== ENCOUNTER → 2018-12-26 | Outpatient (CLI) | payer MEDICARE ==
--- NOTE | 2018-12-26 22:41 | MR ---
EXAMINATION TYPE: MR knee LT wo con DATE OF EXAM: 12/26/2018 COMPARISON: Left knee x-ray December 12, 2018. HISTORY: Nondisplaced osteochondral fracture, Fall TECHNIQUE: Multiplanar, multisequence images of the knee is performed without IV contrast. FINDINGS: MEDIAL MENISCUS: Anterior and posterior horns are intact without tear. LATERAL MENISCUS: Anterior and posterior horns are intact without tear. CRUCIATE LIGAMENTS: The anterior and posterior cruciate ligaments are intact and unremarkable. COLLATERAL LIGAMENTS: The medial collateral ligament and lateral collateral ligament complex are inta ct and unremarkable. EXTENSOR MECHANISM: Visualized quadriceps and patellar tendons are intact. EFFUSION: There is moderate size suprapatellar joint effusion. POPLITEAL CYST: There is small popliteal/saucedo cyst. TRICOMPARTMENT SPACES: There is mild to moderate tricompartment joint space loss without significant spurring. CARTILAGE: There is chondromalacia patella with thinning of articular cartilage along the posterior p atellar pole. There is some cartilaginous loss medial lateral tibiofemoral compartments. BONE MARROW SIGNAL: Areas of diminished T1 and T2 signal throughout the distal femur and proximal tib ia correlate to take sclerotic areas and x-ray consistent with bone infarcts. There are larger areas abutting the articular surface in the distal femur involving medial and lateral distal femoral condyl es consistent with areas of osteochondral defect. No suspicious T2 hyperintensity or osseous edema. N o definitive ossific fragmentation is noted. There is acute nondisplaced fracture through the fibular head with adjacent edema noted. OTHER: No additional significant abnormality is appreciated. IMPRESSION: 1. No meniscal or ligamentous tears are seen. 2. There is nondisplaced transverse fracture through the fibular head with adjacent osseous edema. 3. There are old bone infarcts involving the distal femur and proximal tibia and osteochondral lesion s involving distal femur articular surface through the medial and lateral condyles without ossific fr agmentation. 4. Moderate-sized suprapatellar joint effusion. 5. Mild to moderate tricompartment degenerative changes most prominent patellofemoral compartment. 6. Small popliteal cyst.
== END ==
LOC: RADMRIMAIN 16:32
PROVIDERS: ATTEND Family Medicine
DX: S82.425A Nondisplaced transverse fracture of shaft of left fibula, initial encounter for closed fracture (principal); M25.462 Effusion, left knee; M17.12 Unilateral primary osteoarthritis, left knee; M71.22 Synovial cyst of popliteal space [Baker], left knee

== ENCOUNTER → 2019-04-30 | Outpatient (CLI) | payer MEDICARE ==
[2019-04-30 17:42] LABS: African American GFR (CKD) 64.1 (60.0-200.0); Anion Gap 9.5 mmol/L (4.00-12.00); BUN/Creat Ratio 16.36 Ratio (12.00-20.00); Calcium 9.3 mg/dL (8.7-10.3); Carbon Dioxide 26.5 mmol/L (21.6-31.8); Potassium 4.6 mmol/L (3.5-5.5)
== END | disposition home or self-care (01) ==
LOC: LABWHC1 10:13
PROVIDERS: ATTEND Internal Medicine
DX: I51.9 Heart disease, unspecified (principal); Z51.81 Encounter for therapeutic drug level monitoring; Z79.899 Other long term (current) drug therapy
CPT/HCPCS: 36415; 80048

== ENCOUNTER → 2019-05-17 | Outpatient (CLI) | payer MEDICARE ==
[2019-05-17 11:32] LABS: Basophils # (A) 0.2 k/uL (0-0.2); Basophils % (A) 2 %; Eosinophils # (A) 0.1 k/uL (0-0.7); Eosinophils % (A) 2 %; HCT 45.4 % (34.0-46.0); HGB 14.5 gm/dL (11.4-16.0); Lymphocytes # (A) 1.5 k/uL (1.0-4.8); Lymphocytes % (A) 19 %; MCH 30.3 pg (25.0-35.0); MCV 94.5 fL (80.0-100.0); Mean Platelet Volume 7.3; Monocytes # (A) 0.3 k/uL (0-1.0); Monocytes % (A) 4 %; Neutrophils # (A) 5.8 k/uL (1.3-7.7); Neutrophils % (A) 72 %; Platelet Count 270 k/uL (150-450); RBC 4.81 m/uL (3.80-5.40)
[2019-05-17 11:37] LABS: INR 0.9 (<1.2)
[2019-05-17 11:49] LABS: African American GFR (CKD) 78 (>60 ml/min/1.73 sqM); Anion Gap 9 mmol/L; Blood Urea Nitrogen 22 mg/dL (7-17); Calcium 9.8 mg/dL (8.4-10.2); Carbon Dioxide 29 mmol/L (22-30); Chloride 103 mmol/L (98-107); Glucose 77 mg/dL (74-99); Potassium 4.3 mmol/L (3.5-5.1); Sodium 141 mmol/L (137-145)
== END | disposition home or self-care (01) ==
LOC: LABWHC1 11:06
PROVIDERS: ATTEND Pediatrics Pediatric Cardiology
DX: Z01.812 Encounter for preprocedural laboratory examination (principal); I25.10 Atherosclerotic heart disease of native coronary artery without angina pectoris
CPT/HCPCS: 36415; 80048; 85025; 85610

== ENCOUNTER → 2020-12-03 | Outpatient (CLI) | payer MEDICARE ==
--- NOTE | 2020-12-07 10:10 | MM ---
Reason for exam: screening (asymptomatic). Last mammogram was performed 1 year and 11 months ago. History: Patient is postmenopausal. Family history of breast cancer in mother at age 55. Physical Findings: A clinical breast exam by your physician is recommended on an annual basis and results should be correlated with mammographic findings. MG 3D Screening Mammo W/Cad Bilateral CC and MLO view(s) were taken. XCCL view(s) were taken of the right breast. Prior study comparison: January 01, 2019, mammogram, performed at [facility]. There are scattered fibroglandular densities. Benign vascular calcifications. No significant changes when compared with prior studies. ASSESSMENT: Negative, BI-RAD 1 RECOMMENDATION: Routine screening mammogram of both breasts in 1 year.
== END | disposition home or self-care (01) ==
LOC: RADMAMWWP 16:22
PROVIDERS: ATTEND Family Medicine
DX: Z12.31 Encounter for screening mammogram for malignant neoplasm of breast (principal); Z80.3 Family history of malignant neoplasm of breast
CPT/HCPCS: 77063; 77067

== ENCOUNTER → 2021-06-22 | Outpatient (CLI) | payer MEDICARE ==
--- NOTE | 2021-06-22 13:34 | USB ---
Reason for exam: clinical finding. History: Patient is postmenopausal. Family history of breast cancer in mother at age 50. Indicated problem(s): palpable abnormality and pain in the left breast. 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 US Breast BILAT Right complete breast ultrasound includes all four quadrants, the retroareolar region and axilla. Finding demonstrates no cystic or solid lesion seen. Left complete breast ultrasound includes all four quadrants, the retroareolar region and axilla. Finding demonstrates a 3.1 x 3.0 x 0.8cm oval, subcutaneous lipoma just below dermal surface suspected at infraclavicular region. These results were verbally communicated with the patient and result sheet given to the patient on 06/22/21. ASSESSMENT: Benign, BI-RAD 2 RECOMMENDATION: Return to routine screening mammogram schedule for both breasts. Back on schedule for November 2021. Manage patient on a clinical basis.
== END | disposition home or self-care (01) ==
LOC: RADUSWWP 12:06
PROVIDERS: ATTEND Family Medicine
DX: N64.4 Mastodynia (principal); Z78.0 Asymptomatic menopausal state; Z80.3 Family history of malignant neoplasm of breast

== ENCOUNTER → 2022-02-08 | Outpatient (CLI) | payer MEDICARE ==
--- NOTE | 2022-02-10 18:17 | MM ---
Reason for Exam: Screening (asymptomatic). Last mammogram was performed 1 year(s) and 2 month(s) ago. Patient History: Menarche at age 16. First Full-Term at age 24. Hysterectomy at age 39. Postmenopausal. Mother had breast cancer, age 50. Risk Values: Yara 5 year model risk: 2.6%. NCI Lifetime model risk: 12.1%. Prior Study Comparison: 01/01/2019 Screening Mammogram, [facility]. 12/03/2020 Bilateral Screening Mammogram, [facility]. Tissue Density: There are scattered fibroglandular densities. Findings: Analyzed By CAD. Bilateral vascular calcifications. Unchanged asymmetric density lateral right CC view at middle depth. No persisting abnormality on 3-D images. Overall Assessment: Benign, BI-RAD 2 Management: Screening Mammogram of both breasts in 1 year. 1. Patient should continue monthly self breast exams. 2. This exam should not preclude additional follow-up of suspicious palpable abnormalities. Electronically signed and approved by: Rei Melchor M.D. Radiologist
== END | disposition home or self-care (01) ==
LOC: RADMAMWWP 13:19
PROVIDERS: ATTEND Family Medicine
DX: Z12.31 Encounter for screening mammogram for malignant neoplasm of breast (principal); Z80.3 Family history of malignant neoplasm of breast; Z78.0 Asymptomatic menopausal state
CPT/HCPCS: 77063; 77067

== ENCOUNTER 2023-01-24 08:04 | Day surgery (SDC) | payer MEDICARE ==
[2022-11-25 11:02] VITALS: BMI 20.9
[~2023-01-24 08:04] MED LIST changes: +LACTATED RINGERS 1,000 ML IV SCH; +LIDOCAINE 1% (10MG/ML) FOR IV START INTRADERMA PRN; -REGADENOSON 0.4 MG/5 ML SYRINGE IV ONE
[2023-01-24] MEDS ORDERED: PROPOFOL 10 MG/ML 20 ML VIAL IV ONE (08:48)
[2023-01-24 08:49] VITALS: TEMP 96.8
--- NOTE | 2023-01-24 08:53 | P.GSHP ---
History of Present Illness H&P Date: 01/24/23 Chief Complaint: Change in bowel habits 63-year-old female with history of chronic constipation. Patient also with history of previous transverse colonic perforation requiring resection with anastomosis. Patient with history of multiple sclerosis although apparently it has been in remission. Had recent episodes of C. diff colitis in September. 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 , c-diff (october 2022), states previous c-diff also., oxygen at 3 liter at night, sleep apnea -waiting for machine., chronic constipation History of Any Multi-Drug Resistant Organisms: C-DIFF, MRSA Date of last positivie culture/infection: 05/2012 MDRO Source:: abd. incision Past Surgical History: Appendectomy, Back Surgery, Bowel Resection, Cardiac Valve Replacement, Cholecystectomy, Heart Catheterization, Hernia Repair, Hysterectomy, Joint Replacement, Orthopedic Surgery Additional Past Surgical History / Comment(s): R foot surgery x2, MVR, Colectomy, Colostomy with later Reversal, colonoscopies, several mediports-last removal 04/20/16, Bilateral Hips Replaced, Left Shoulder Replaced, Bilateral Cataracts, Incisional Hernia Repair, occipital and trapezius nerve blocks., repair of heart valve and then replacement of heart valve (2019) Past Anesthesia/Blood Transfusion Reactions: Motion Sickness Additional Past Anesthesia/Blood Transfusion Reaction / Comment(s): Had seizure years ago post anesthesia that was felt to be do to latex allergy. Past Psychological History: Anxiety Additional Psychological History / Comment(s): . Smoking Status: Never smoker Past Alcohol Use History: None Reported Past Drug Use History: None Reported - Past Family History Father Family Medical History: Liver Disease Additional Family Medical History / Comment(s): Father of cirrhosis of the liver. He was an alcoholic. Sister(s) Family Medical History: Deep Vein Thrombosis (DVT) Mother Family Medical History: Cancer Additional Family Medical History / Comment(s): Mother of breast cancer at the age of 55 yrs. Medications and Allergies Home Medications Medication Instructions Recorded Confirmed Type Baclofen [Lioresal] 10 mg PO TID 04/22/14 01/20/23 History cycloSPORINE [Restasis] 1 drop BOTH EYES BID 04/22/14 01/20/23 History ALPRAZolam [Xanax] 1 mg PO BID 08/30/15 01/20/23 History Temazepam [Restoril] 30 mg PO HS 08/30/15 01/20/23 History Cetirizine HCl [Zyrtec] 10 mg PO HS 10/19/15 01/20/23 History Montelukast [Singulair] 10 mg PO HS 10/19/15 01/20/23 History Aspirin EC [Ecotrin Low Dose] 81 mg PO DAILY 05/25/16 01/20/23 History Albuterol Nebulized [Ventolin 2.5 mg INHALATION RT-BID 09/01/16 01/20/23 History Nebulized] Gabapentin [Neurontin] 400 mg PO TID 09/01/16 01/20/23 History Fluticasone Propion/Salmeterol 1 inhalation PO RT-BID 04/13/17 01/20/23 History [Advair 500-50 Diskus] Albuterol Inhaler [Ventolin Hfa 1 - 2 puff INHALATION RT-Q6H PRN 08/17/17 01/20/23 History Inhaler] Hydrocortisone [Cortef] 10 mg PO DAILY@1500 02/19/19 01/20/23 History Empagliflozin [Jardiance] 10 mg PO DAILY 11/25/22 01/20/23 History Hydrocortisone [Cortef] 20 mg PO QAM 11/25/22 01/20/23 History Pantoprazole [Protonix] 40 mg PO BID 11/25/22 01/20/23 History Ascorbic Acid [Vitamin C] 282 mg PO DAILY 01/20/23 01/20/23 History Calcium Carbonate [Calcium] 650 mg PO DAILY 01/20/23 01/20/23 History Cyanocobalamin [Vitamin B-12] 500 mcg PO DAILY 01/20/23 01/20/23 History Escitalopram [Lexapro] 10 mg PO DAILY 01/20/23 01/20/23 History Ozempic 1 dose SQ TU 01/20/23 History Vitamin D3/Vitamin K2 (Mk4) 1 each PO DAILY 01/20/23 01/20/23 History [Vitamin K2 Plus D3 Tablet] Allergies Allergy/AdvReac Type Severity Reaction Status Date / Time vancomycin Allergy Severe Anaphylaxis Verified 01/24/23 08:25 doxycycline Allergy Anaphylaxis Verified 01/24/23 08:25 hydromorphone HCl Allergy Anaphylaxis Verified 01/24/23 08:25 [From Dilaudid] Latex, Natural Rubber Allergy Rash/Hives- Verified 01/24/23 08:25 seizure after anesthesia. linezolid [From Zyvox] Allergy Rash/Hives, Verified 01/24/23 08:25 itching warfarin sodium Allergy Rash/Hives Verified 01/24/23 08:25 [From Coumadin] fentanyl AdvReac Nausea & Verified 01/24/23 08:25 Vomiting Surgical - Exam Vital Signs Temp Pulse Resp BP Pulse Ox 96.8 F L 81 17 114/65 98 01/24/23 08:43 01/24/23 08:43 01/24/23 08:43 01/24/23 08:43 01/24/23 08:43 Physical exam: General: Well-developed, well-nourished HEENT: Normocephalic, sclerae nonicteric Abdomen: Nontender, nondistended Extremities: No edema Neuro: Alert and oriented Assessment and Plan (1) Constipation Narrative/Plan: Will proceed with colonoscopy at this time Current Visit: No Status: Acute Code(s): K59.00 - CONSTIPATION, UNSPECIFIED SNOMED Code(s): 67509909
--- NOTE | 2023-01-24 09:15 | P.PCN ---
Date of Procedure: 01/24/23 Procedure(s) Performed: PREOPERATIVE DIAGNOSIS: Change in bowel habits POSTOPERATIVE DIAGNOSIS: Melanosis coli, diverticulosis PROCEDURE: Colonoscopy ANESTHESIA: MAC SURGEON: Edwin Grimm M.D. SPECIMENS: None ENDOSCOPIC PROCEDURE: The patient was placed on the endoscopy table in the left decubitus position. The Olympus colonoscope was inserted into the anus and passed under direct visualization to the base of the cecum. The appendiceal orifice was visualized. From that point the scope was slowly withdrawn inspecting all surfaces carefully. There were no neoplastic inflammatory or polypoid lesions throughout the cecum, ascending, transverse, descending, sigmoid and rectum. There was mild scattered diverticulosis noted throughout the colon. The patient's previous colocolonic anastomosis was widely patent. The patient had significant melanosis coli from chronic stool softener use. Digital rectal examination was normal. The patient was taken to the recovery room in stable condition per anesthesia guidelines. RECOMMENDATIONS: Resume diet. Repeat colonoscopy in 7-10 years.
[2023-01-24 09:18] VITALS: PULSE 72; RESP 16
[2023-01-24] MEDS ORDERED: ONDANSETRON 4 MG/2 ML VIAL ONE (09:40)
[2023-01-24 09:58] VITALS: BP 105/73
== END 2023-01-24 10:21 | disposition home or self-care (01) ==
LOC: ORWHC2ENDO 08:04
PROVIDERS: ATTEND Surgery
DX: K57.30 Diverticulosis of large intestine without perforation or abscess without bleeding (principal); K63.89 Other specified diseases of intestine; J44.9 Chronic obstructive pulmonary disease, unspecified; K21.9 Gastro-esophageal reflux disease without esophagitis; M19.90 Unspecified osteoarthritis, unspecified site; J18.9 Pneumonia, unspecified organism; E11.42 Type 2 diabetes mellitus with diabetic polyneuropathy; G35 Multiple sclerosis; M81.0 Age-related osteoporosis without current pathological fracture; F41.9 Anxiety disorder, unspecified; Z86.73 Personal history of transient ischemic attack (TIA), and cerebral infarction without residual deficits; Z86.718 Personal history of other venous thrombosis and embolism; Z87.11 Personal history of peptic ulcer disease; Z87.440 Personal history of urinary (tract) infections; G47.30 Sleep apnea, unspecified; Z90.89 Acquired absence of other organs; Z90.49 Acquired absence of other specified parts of digestive tract; Z98.84 Bariatric surgery status; Z98.890 Other specified postprocedural states; Z90.710 Acquired absence of both cervix and uterus; Z95.2 Presence of prosthetic heart valve; Z96.643 Presence of artificial hip joint, bilateral; Z98.41 Cataract extraction status, right eye; Z98.42 Cataract extraction status, left eye; Z83.79 Family history of other diseases of the digestive system; Z80.3 Family history of malignant neoplasm of breast; Z79.82 Long term (current) use of aspirin; Z79.51 Long term (current) use of inhaled steroids; Z79.899 Other long term (current) drug therapy; Z79.84 Long term (current) use of oral hypoglycemic drugs; Z88.1 Allergy status to other antibiotic agents; Z88.6 Allergy status to analgesic agent; Z91.040 Latex allergy status; Z88.4 Allergy status to anesthetic agent; Z88.5 Allergy status to narcotic agent; Z88.8 Allergy status to other drugs, medicaments and biological substances
CPT/HCPCS: 45378; J2405; J2704

== ENCOUNTER → 2023-02-22 | Outpatient (CLI) | payer MEDICARE ==
--- NOTE | 2023-02-22 14:08 | CT ---
EXAMINATION TYPE: CT cervical spine wo con CT DLP: 431.6 mGycm, Automated exposure control for dose reduction was used. DATE OF EXAM: 02/22/2023 1:09 PM COMPARISON: None. CLINICAL INDICATION:Female, 63 years old with history of M50.30,M75.21; PHH, Cervicalgia TECHNIQUE: Axial CT images from the skull base to the inferior aspect of T2 we obtained without intra venous contrast. Coronal and sagittal reformatted images were also reviewed. FINDINGS: Fracture: Anterior wedging of the C6 vertebral body with approximately 25% height loss and no retropu lsion. No paraspinal edema identified. Osseous structures: Vertebral augmentation changes involving the T3 vertebral body. Vertebral alignment: Within normal limits. Spinal canal/Neural Foramina: Mild effacement of the anterior thecal sac with broad-based disc bulge at C5-C6. Neck soft tissues: Prevertebral soft tissues are within normal limits. Other: The airway is patent. Biapical pleural-parenchymal scarring. IMPRESSION: 1. Age-indeterminate anterior wedge compression deformity of the C6 vertebral body with approximately 25% height loss and no retropulsion. Correlation with point tenderness is recommended. 2. Mild multilevel degenerative disc disease. 3. Vertebral augmentation changes of the T3 vertebral body.
--- NOTE | 2023-02-22 14:40 | CT ---
EXAMINATION TYPE: CT shoulder RT wo con CT DLP: 295.0 mGycm, Automated exposure control for dose reduction was used. DATE OF EXAM: 02/22/2023 1:09 PM COMPARISON: None CLINICAL INDICATION:Female, 63 years old with history of M50.30,M75.21; PHH, Right shoulder pain TECHNIQUE: Axial images were obtained of the right shoulder without the use of IV contrast. Addition al coronal and sagittal reformatted images and soft tissue and bone window were obtained for review. FINDINGS: There is no evidence of fracture, subluxation, or dislocation. No significant soft tissue swelling or joint effusion is identified. No significant joint space narrowing or spurring noted. No focal muscular atrophy or edema is identified. No radiopaque foreign body identified. Visualized port ions of the chest are relatively unremarkable. IMPRESSION: No acute fracture or dislocation.
== END | disposition home or self-care (01) ==
LOC: RADCTMAIN 12:37
PROVIDERS: ATTEND Family Medicine
DX: M50.30 Other cervical disc degeneration, unspecified cervical region (principal); M75.21 Bicipital tendinitis, right shoulder
CPT/HCPCS: 72125

== ENCOUNTER → 2024-04-24 | Outpatient (CLI) | payer MEDICARE ==
--- NOTE | 2024-04-30 14:55 | MM ---
Reason for Exam: Screening (asymptomatic). Last mammogram was performed 1 year(s) and 1 month(s) ago. Patient History: Menarche at age 16. First Full-Term at age 24. Hysterectomy at age 39. Postmenopausal. Mother had breast cancer, age 50. Risk Values: Yara 5 year model risk: 2.7%. NCI Lifetime model risk: 11.4%. Prior Study Comparison: 01/01/2019 Screening Mammogram, [facility]. 12/03/2020 Bilateral Screening Mammogram, [facility]. 02/08/2022 Bilateral MG 3D screening mammo w/cad, [facility]. 03/17/2023 Bilateral MG 3D screening mammo w/cad, [facility]. Tissue Density: The breasts are heterogeneously dense, which may obscure small masses. Findings: Analyzed By CAD. Right breast: There is no suspicious group of microcalcifications or new suspicious mass. Left breast: There is no suspicious group of microcalcifications or new suspicious mass. Overall Assessment: Negative, BI-RAD 1 Management: Screening Mammogram of both breasts in [address] [facility] will attempt to contact patient to return for supplemental views and ultrasound if indicated. Patient should continue monthly self-breast exams. A clinical breast exam by your physician is recommended on an annual basis. This exam should not preclude additional follow-up of suspicious palpable abnormalities. Note on Yara scores and lifetime risk: 1. A Yara score greater than 3% is considered moderate risk. If this is the case, consider specialist referral to assess eligibility for a risk reducing agent. 2. If overall lifetime risk for the development of breast cancer is 20% or higher, the patient may qualify for future screening with alternating mammogram and breast MRI. Electronically signed and approved by: Chito Dyson DO
== END | disposition home or self-care (01) ==
LOC: RADMAMWWP 10:06
PROVIDERS: ATTEND Family Medicine
DX: Z80.3 Family history of malignant neoplasm of breast
CPT/HCPCS: 77063; 77067

== ENCOUNTER → 2024-08-01 | Outpatient (CLI) | payer MEDICARE ==
--- NOTE | 2024-08-01 14:06 | NM ---
EXAMINATION TYPE: NM bone 3 phase DATE OF EXAM: 08/01/2024 COMPARISON: CT 08/17/2017, radiograph 06/10/2024 CLINICAL INDICATION: Female, 64 years old with history of M25.551 Pain R hip; Triple phase bone scintigraphy was performed following the injection of 22.8 mCi Tc 99m MDP. Immedia te images and 5.5 hours post injection images acquired. FINDINGS: Ant increased radiotracer uptake along the distal aspect of the stem of the right hip arthroplast y Mild degeneration changes sacroiliac joints bilaterally. IMPRESSION: Uptake along the right hip arthroplasty stem suggestive of hip arthroplasty loosening. [facility] Ron Corbin, , 08/01/2024 2:03 PM
== END | disposition home or self-care (01) ==
LOC: RADNMMAIN 07:39
PROVIDERS: ATTEND Orthopaedic Surgery
DX: M25.551 Pain in right hip (principal); M53.3 Sacrococcygeal disorders, not elsewhere classified; Z96.641 Presence of right artificial hip joint
CPT/HCPCS: 78315; A9503

== ENCOUNTER → 2024-09-23 | Outpatient (CLI) | payer MEDICARE | END | disposition home or self-care (01) | LOC: LABPAT 12:47 | PROVIDERS: ATTEND Orthopaedic Surgery | DX: Z01.812 Encounter for preprocedural laboratory examination (principal); T84.030A Mechanical loosening of internal right hip prosthetic joint, initial encounter; Z96.641 Presence of right artificial hip joint; Z22.322 Carrier or suspected carrier of Methicillin resistant Staphylococcus aureus | CPT/HCPCS: 86850; 86900; 86901; 87070 ==